=== PATIENT | female | born 1955 | race Caucasian/White ===

== ENCOUNTER 2022-03-13 17:54 | Outpatient (RCR) | payer MEDICARE, SELFPAY | END 2022-10-04 12:51 | disposition home or self-care (01) | LOC: MOW 17:54 | PROVIDERS: Visit Provider Family Medicine | DX: Z76.0 Encounter for issue of repeat prescription (principal) | CPT/HCPCS: S5170 ==

== ENCOUNTER 2022-05-04 15:54 | Outpatient (CLI) | payer MEDICARE, SELFPAY ==
[2022-05-04 16:26] LABS: Basophils Absolute Auto 0.01 K/uL (0.00-0.30); Basophils Percent Auto 0.2 % (0.0-3.0); Eosinophils Absolute Auto 0.01 K/uL (0.00-0.50); Eosinophils Percent Auto 0.2 % (0.0-7.0); Hemoglobin* 11.4 gm/dL (12.0-16.0); Immature Granulocytes Abs Auto 0.01 K/uL (0.00-0.30); Lymphocytes Absolute Auto 2.18 K/uL (0.90-2.90); Lymphocytes Percent Auto 33.1 % (20-44); Mean Corpuscular HGB Conc 34 gm/dL (32-36); Mean Corpuscular Hemoglobin 32 pg (26-34); Mean Corpuscular Volume 94 fL (80-100); Monocytes Percent Auto 7.9 % (0.0-11.0); Neutrophils Absolute Auto 3.86 K/uL (1.7-7.0); Neutrophils Percent Auto 58.4 % (42.0-72.0); Platelet Count* 236 K/uL (140-440); RDW Coefficient of Variation % 15.5 % (11.5-15.5); Red Blood Count 3.62 m/uL (4.00-5.20); White Blood Count* 6.59 K/uL (4.50-11.00)
[2022-05-04 16:28] LABS: Slide Review Reflex No
[2022-05-04 16:39] LABS: Albumin* 4.2 g/dL (3.3-5.0)
[2022-05-04 16:40] LABS: Chloride* 101 mmol/L (96-114); Potassium* 4.2 mmol/L (3.6-5.1); Sodium* 134 mmol/L (135-149)
[2022-05-04 16:42] LABS: Aspartate Amino Transferase* 39 U/L (12-35); Bilirubin Total* 0.2 mg/dL (0.1-1.5); Carbon Dioxide* 24 mmol/L (20-32); Creatinine* 0.7 mg/dL (0.5-1.5); Estimated Glomerular Filt Rate 95 ml/min; Total Protein* 7.8 g/dL (6.0-8.3)
[2022-05-04 16:43] LABS: Alanine Aminotransferase* 26 U/L (4-35); Alkaline Phosphatase* 104 U/L (40-150); Blood Urea Nitrogen* 32 mg/dL (7-30); Calcium* 8.4 mg/dL (8.4-10.6); Glucose* 123 mg/dL (60-115)
== END 2022-05-04 15:55 | disposition home or self-care (01) ==
PROVIDERS: PCP Nurse Practitioner; Visit Provider Nurse Practitioner
DX: C34.12 Malignant neoplasm of upper lobe, left bronchus or lung (principal); R11.0 Nausea; R19.7 Diarrhea, unspecified
CPT/HCPCS: 36415; 80053; 83735; 85025

== ENCOUNTER 2022-08-02 19:27 | Emergency (ER) | payer MEDICARE, SELFPAY ==
[2022-08-02 19:37] VITALS: BP 164/111; PULSE 96; RESP 18; TEMP 36.6; O2SAT 100; BMI 37.8
--- NOTE | 2022-08-02 20:15 | ED_ITS ---
HPI - SOB/Dyspnea General Chief Complaint: Shortness of Breath/Dyspnea Stated Complaint: Weakness Time Seen by Provider: 08/02/22 19:57 History of Present Illness HPI Narrative: This 66-year-old female comes in reporting shortness of breath. She arrives with no 100% oximetry and normal pulse and respiratory rates. She states that she is COPD and small cell lung cancer that is metastatic to several other places. She is currently being treated in the [facility] and finished radia tion and chemotherapy a couple weeks ago. She does not report any fevers. She states that she has an inhaler but reports that it has not helped much. Related Data Home Medications Medication Instructions Recorded Confirmed albuterol sulfate 90 mcg/actuation inhalation 08/02/22 aerosol inhaler alprazolam 1 mg tablet mg 08/02/22 alprazolam 2 mg tablet mg 08/02/22 atenolol 50 mg tablet mg 08/02/22 carvedilol 6.25 mg tablet mg 08/02/22 duloxetine 20 mg capsule,delayed mg PO 08/02/22 release eszopiclone 2 mg tablet mg 08/02/22 fluticasone fur. 200 mcg-umeclid inhalation 08/02/22 62.5 mcg-vilant 25 mcg inhalat.powder (Trelegy Ellipta) furosemide 20 mg tablet mg 08/02/22 lisinopril 5 mg tablet mg 08/02/22 olanzapine 2.5 mg tablet mg 08/02/22 ropinirole 2 mg tablet mg 08/02/22 Allergies Allergy/AdvReac Type Severity Reaction Status Date / Time No Known Drug Allergies Allergy Verified 08/02/22 19:44 Review of Systems Status of ROS: Reports: 10 or more systems reviewed and unremarkable except as noted in History and below Narrative: Constitutional: No fevers, no weight gain or loss. Eyes: No discharge. No vision changes. HENT: No congestion, no sore throat, no ear pain. Cardiovascular: No chest pain, no palpitations. Respiratory: Shortness of breath as described above. Gastrointestinal: No abdominal pain, no vomiting, no diarrhea. Genitourinary: No dysuria, no hematuria. Musculoskeletal: Normal range of motion. Skin: No rashes, no pruritis. Neurological: No dizziness, weakness, sensory change, speech change. Endo/Heme/Allergies: No bruising or bleeding. No polydipsia. Pysch: no suicidality, no anxiety, no insomnia. All other systems reviewed and are negative. PFSH [facility] Social History Smoking Status: Current every day smoker What tobacco products do you use: cigarettes Second hand tobacco smoke exposure: No How often do you have a drink containing alcohol: never AUDIT-C Alcohol total score: 0 Non-prescribed substance use: denies use service: No Exam Narrative: Exam Narrative: Constitutional: Well-developed, well-nourished, no acute distress. HEENT: Normocephalic, atraumatic. Neck: Normal range of motion. Nontender. Supple. Heart: Regular. No murmurs. Normal rate. Intact distal pulses. Lungs: Clear to auscultation. No chest discomfort. No wheezes, rhonchi, or rales. Abdomen: Normal bowel sounds. Nontender. No rebound tenderness. Genitalia: Deferred. Back: No midline tenderness. Normal range of motion. Extremities: Normal range of motion. No injury. No pedal edema. Skin: Intact. No rash. Warm. No erythema or pallor. Neurologic: No altered sensation. No weakness. Alert and oriented. Psychiatric: No suicidality. No anxiety or depression. No insomnia. Nursing notes and vitals signs are reviewed. Const: Vital Signs, click to edit/add: Vital Signs - 24 hr 08/02/22 19:37 08/02/22 20:35 Temperature 97.9 F Pulse Rate [Pulse Oximeter] 96 93 Respiratory Rate 18 20 Blood Pressure [Ri ght Upper Arm] 164/111 H 152/111 H Pulse Oximetry 100 97 Oxygen Delivery Me thod Nasal Cannula Room Air Course Vital Signs Vital signs: Initial Vital Signs Temperature 97.9 F 08/02/22 19:37 Temperature Source Temporal Artery Scan 08/02/22 19:37 Pulse Rate 96 08/02/22 19:37 Pulse Rhythm 08/02/22 19:37 Pulse Strength 0+ Absent 08/02/22 19:37 Respiratory Rate 18 08/02/22 19:37 Blood Pressure 164/111 H 08/02/22 19:37 Blood Pressure Mean 128 08/02/22 19:37 Blood Pressure Position Sitting 08/02/22 19:37 Pulse Oximetry 100 08/02/22 19:37 Oxygen Delivery Method 08/02/22 19:37 Vital Signs Temperature 97.9 F 08/02/22 19:37 Pulse Rate 96 08/02/22 19:37 Respiratory Rate 18 08/02/22 19:37 Blood Pressure 164/111 H 08/02/22 19:37 Pulse Oximetry 100 08/02/22 19:37 Oxygen Delivery Method 08/02/22 19:37 Temperature 97.9 F 08/02/22 19:37 Pulse Rate 93 08/02/22 20:35 Respiratory Rate 20 08/02/22 20:35 Blood Pressure 152/111 H 08/02/22 20:35 Pulse Oximetry 97 08/02/22 20:35 Oxygen Delivery Method 08/02/22 20:35 MDM - SOB/Dyspnea MDM Narrative Medical decision making narrative: This patient comes in reporting worsening shortness of breath over the past 5 days or so. I did discuss lab and imaging options with the patient who declined all these except for the nasal swab. She is showing normal vital signs and is not using accessory muscles for breathing. She did recently have chemotherapy and radiation treatments. The radiation may be causing some changes in her breathing. Her EKG shows a left bundle branch block. She is not reporting any chest pain. Her testing for COVID and RSV returned negative. Influenza a is positive. Her symptoms started 3 days ago she says so she did receive a prescription for Tamiflu. I did again ask her about checking further labs and imaging which she declined. She plans to follow-up with her primary physician and oncology team. Lab Data Labs: Lab Results 08/02/22 Range/Units 19:30 SARS-CoV-2 (PCR) Negative SARS-CoV-2 (Negative) Influenza Type A (PCR) POSITIVE PCR FLU A A (Negative) Influenza Type B (PCR) Negative PCR FLU B (Negative) RSV (PCR) Negative PCR RSV (Negative) ECG Data Attestation: I personally reviewed and interpreted this ECG as follows: Interpretation: Normal sinus rhythm. Rate is 95 beats per minute. There is a left bundle branch block. Discharge Plan Discharge Clinical Impression: Influenza A Patient Disposition: Home, Self-Care Condition: Stable Additional Instructions: Take medication as prescribed. Follow up with primary physician or return if worsening symptoms happen. Prescriptions: No Action carvedilol 6.25 mg tablet alprazolam 1 mg tablet Label Comments: TAKE 1 TABLET BY MOUTH THREE TIMES DAILY NEEDED olanzapine 2.5 mg tablet ropinirole 2 mg tablet Label Comments: TAKE 1 TABLET BY MOUTH EVERY NIGHT AT BEDTIME lisinopril 5 mg tablet furosemide 20 mg tablet alprazolam 2 mg tablet Label Comments: TAKE 1 TABLET BY MOUTH EVERY DAY AT BEDTIME NEEDED albuterol sulfate 90 mcg/actuation HFA aerosol inhaler INHALATION Label Comments: INHALE 2 PUFFS BY MOUTH EVERY 4 HOURS NEEDED FOR SHORTNESS OF BREATH atenolol 50 mg tablet Label Comments: TAKE 1 AND ONE-HALF TABLET BY MOUTH DAILY duloxetine 20 mg capsule,delayed release(DR/EC) PO Label Comments: TAKE 1 CAPSULE BY MOUTH EVERY DAY eszopiclone 2 mg tablet Label Comments: TAKE 1 TABLET BY MOUTH AT BEDTIME Trelegy Ellipta 200-62.5-25 mcg blister with device INHALATION Label Comments: INHALE 1 PUFF BY MOUTH EVERY DAY Follow Up/Referrals: Misty Hess APRN [Primary Care Provider] - Stand Alone Forms: [facility] Info Instructions
[2022-08-02 20:24] LABS: PCR FLU A POSITIVE PCR FLU A (Negative); PCR FLU B Negative PCR FLU B (Negative); PCR RSV Negative PCR RSV (Negative)
[2022-08-02 20:27] LABS: SARS PCR* Negative SARS-CoV-2 (Negative)
[2022-08-02 20:35] VITALS: BP 152/111; PULSE 93; RESP 20; O2SAT 97
[2022-08-02 21:33] VITALS: BP 114/75; PULSE 78; RESP 18
--- NOTE | 2022-08-03 16:31 | PC.SOCIAL ---
Phone call to pt's son, Inocente Kong, at [phone]. Discussed current concerns of pt. Inocente states that pt is unwilling to allow anyone to assist her. Inocente states that pt is currently in pain and he is trying to get her to go into the Emergency Department as we speak, but pt is yelling at him. Discussed potential resources for client. Inocente informs that client had home sales service professional care in place a few months back and pt would not allow workers into her home. public bath attendant care is currently not in place and Inocente does not feel like that is an option due to pt's non-compliance. Discussed hospice with pt's son. Pt's son is interested in obtaining a list for hospice care agencies in the area. This worker will email a list to [email or web address]. Informed Inocente that he can call hospice and request an informational meeting for pt and himself. Discussed if there were any upcoming appointments for Oncology and Inocente stated he is waiting for [facility] in [place] to call him back with appointment information. Informed Inocente that Oncology could also discuss options for services and discuss hospice. Inocente states that pt will not listen to him and may only listen to mobile paramedical examiner. Discussed if all of pt's needs were currently being met and Inocente stated they are but he is doing everything and it is overwhelming because pt does not want him to do things for her. Inocente states that pt wants to at home and doesn't want anyone assisting her with any of her care needs. Provided Inocente with the [employer] [facility] line phone number which is [phone]. Informed Inocente that they could assist with locating resources in the area that may be of assistance. Will follow up with an email of resources. Informed Inocente that he may reach out to the social work department with any further questions.
== END 2022-08-02 21:33 | disposition home or self-care (01) ==
PROVIDERS: Emergency Provider Emergency Medicine Emergency Medical Services; PCP Nurse Practitioner
DX: J10.1 Influenza due to other identified influenza virus with other respiratory manifestations (principal)
CPT/HCPCS: 87502; 87634; 87635; 93005; 99284; A0425; A0427

== ENCOUNTER 2022-08-13 17:37 | Emergency (ER) | payer MEDICARE, SELFPAY ==
[2022-08-13 19:06] VITALS: BP 132/84; PULSE 92; RESP 24; TEMP 36; O2SAT 93; BMI 35.4
[2022-08-13] MEDS: OLANZapine 5 MG TAB.RAPDIS PO (20:00)
--- NOTE | 2022-08-13 20:05 | ED.NURSE ---
Pt pacing in and hallway. Pt has impulsive and spontaneous loud verbal outbursts when pt needs to express a thought or question. Pt accepted oral med. Pt initially refused to allow lab draw, but pt verbally redirected by repairer typewriter and then pt allowed lab to draw blood. Pt very impatient and verbally loud while blood was drawn. Pt stating desire to leave. notified.
[2022-08-13 20:09] LABS: Basophils Absolute Auto 0.02 K/uL (0.00-0.30); Basophils Percent Auto 0.2 % (0.0-3.0); Eosinophils Percent Auto 1.2 % (0.0-7.0); Hematocrit 44.6 % (33.0-51.0); Hemoglobin* 14.5 gm/dL (12.0-16.0); Immature Granulocytes Abs Auto 0.01 K/uL (0.00-0.30); Immature Granulocytes Pct Auto 0.1 %; Lymphocytes Percent Auto 47.2 % (20-44); Mean Corpuscular HGB Conc 33 gm/dL (32-36); Mean Corpuscular Hemoglobin 30 pg (26-34); Mean Corpuscular Volume 92 fL (80-100); Neutrophils Absolute Auto 3.58 K/uL (1.7-7.0); Neutrophils Percent Auto 44.3 % (42.0-72.0); Platelet Count* 318 K/uL (140-440); RDW Coefficient of Variation % 12.5 % (11.5-15.5); Red Blood Count 4.83 m/uL (4.00-5.20); White Blood Count* 8.11 K/uL (4.50-11.00)
[2022-08-13 20:10] LABS: Slide Review Reflex No
--- NOTE | 2022-08-13 20:19 | ED.NURSE ---
Pt attempted to walk out of ED, yelling at security that she was leaving. Pt verbally directed by conventional underwriter and security to return to her room. Pt returned to room 7 voluntarily, continuing to yell about wanting to leave. MD aware, pt placed on 72-hour hold. Cork Wirer read Notice of Patient Rights to pt and provided pt with copy of Notice of Patient Rights. spoke with pt in RM 7 as well to attempt to deescalate pt.
[2022-08-13 20:28] LABS: Albumin* 4.8 g/dL (3.3-5.0); Chloride* 106 mmol/L (96-114); Sodium* 143 mmol/L (135-149)
[2022-08-13 20:29] LABS: Potassium* 3.9 mmol/L (3.6-5.1)
[2022-08-13 20:31] LABS: Alkaline Phosphatase* 95 U/L (40-150); Aspartate Amino Transferase* 27 U/L (12-35); Bilirubin Total* 0.5 mg/dL (0.1-1.5); Blood Urea Nitrogen* 26 mg/dL (7-30); Calcium* 9.9 mg/dL (8.4-10.6); Carbon Dioxide* 29 mmol/L (20-32); Creatinine* 0.7 mg/dL (0.5-1.5); Est. Creatinine Clearance* 45.16; Estimated Glomerular Filt Rate 95 ml/min; Glucose* 115 mg/dL (60-115); Total Protein* 8.9 g/dL (6.0-8.3)
[2022-08-13 20:32] LABS: Acetaminophen* < 10.0 ug/mL (10.0-30.0); Alanine Aminotransferase* 25 U/L (4-35); Ethanol* < 0.01 % (0.01-0.03); Salicylate* < 1.0 mg/dL (1.0-10)
--- NOTE | 2022-08-13 20:38 | ED.AMS ---
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 Cocaine Screen (Negative) U Marijuana (THC) Screen (Negative) Ur Drug Screen Comment Ethyl Alcohol (0.01-0.03) % SARS-CoV-2 (PCR) Negative SARS-CoV-2 (Negative) <Jaki Sandy MD - Last Filed: 08/14/22 23:21> Lab Results 08/13/22 08/13/22 08/13/22 Range/Units 19:55 20:03 20:03 WBC 8.11 (4.50-11.00) K/uL RBC 4.83 (4.00-5.20) m/uL Hgb 14.5 (12.0-16.0) gm/dL Hct 44.6 (33.0-51.0) % MCV 92 (80-100) fL MCH 30 (26-34) pg MCHC 33 (32-36) gm/dL RDW Coeff of Michelle 12.5 (11.5-15.5) % Plt Count 318 (140-440) K/uL Neut % (Auto) 44.3 (42.0-72.0) % Lymph % (Auto) 47.2 H (20-44) % Rogers % (Auto) 7.0 (0.0-11.0) % Eos % (Auto) 1.2 (0.0-7.0) % Baso % (Auto) 0.2 (0.0-3.0) % Neut # (Auto) 3.58 (1.7-7.0) K/uL Lymph # (Auto) 3.80 H (0.90-2.90) K/uL Rogers # (Auto) 0.60 (0.00-0.90) K/UL Eos # (Auto) 0.10 (0.00-0.50) K/uL Baso # (Auto) 0.02 (0.00-0.30) K/uL Abs Immat Gran (auto) 0.01 (0.00-0.30) K/uL Imm/Tot Granulo (auto) 0.1 % Sodium 143 (135-149) mmol/L Potassium 3.9 (3.6-5.1) mmol/L Chloride 106 (96-114) mmol/L Carbon Dioxide 29 (20-32) mmol/L BUN 26 (7-30) mg/dL Creatinine 0.7 (0.5-1.5) mg/dL Estimated Creat Clear 45.16 Estimated GFR 95 ml/min Glucose 115 (60-115) mg/dL Calcium 9.9 (8.4-10.6) mg/dL Total Bilirubin 0.5 (0.1-1.5) mg/dL AST 27 (12-35) U/L ALT 25 (4-35) U/L Alkaline Phosphatase 95 (40-150) U/L Total Protein 8.9 H (6.0-8.3) g/dL Albumin 4.8 (3.3-5.0) g/dL Salicylates < 1.0 L (1.0-10) mg/dL Urine Opiates Screen Negative (Negative) Ur Oxycodone Screen Negative (Negative) Urine Methadone Screen Negative (Negative) Ur Propoxyphene Screen Negative (Negative) Acetaminophen < 10.0 L (10.0-30.0) ug/mL Ur Barbiturates Screen Negative (Negative) U Tricyclic Antidepress Negative (Negative) Ur Phencyclidine Scrn Negative (Negative) Ur Amphetamines Screen POSITIVE A* (Negative) U Methamphetamines Scrn POSITIVE A* (Negative) U Benzodiazepines Scrn POSITIVE A* (Negative) Urine Cocaine Screen Negative (Negative) U Marijuana (THC) Screen Negative (Negative) Ur Drug Screen Comment See Note Ethyl Alcohol < 0.01 L (0.01-0.03) % SARS-CoV-2 (PCR) (Negative) 08/13/22 Range/Units 21:10 WBC (4.50-11.00) K/uL RBC (4.00-5.20) m/uL Hgb (12.0-16.0) gm/dL Hct (33.0-51.0) % MCV (80-100) fL MCH (26-34) pg MCHC (32-36) gm/dL RDW Coeff of Michelle (11.5-15.5) % Plt Count (140-440) K/uL Neut % (Auto) (42.0-72.0) % Lymph % (Auto) (20-44) % Rogers % (Auto) (0.0-11.0) % Eos % (Auto) (0.0-7.0) % Baso % (Auto) (0.0-3.0) % Neut # (Auto) (1.7-7.0) K/uL Lymph # (Auto) (0.90-2.90) K/uL Rogers # (Auto) (0.00-0.90) K/UL Eos # (Auto) (0.00-0.50) K/uL Baso # (Auto) (0.00-0.30) K/uL Abs Immat Gran (auto) (0.00-0.30) K/uL Imm/Tot Granulo (auto) % Sodium (135-149) mmol/L Potassium (3.6-5.1) mmol/L Chloride (96-114) mmol/L Carbon Dioxide (20-32) mmol/L BUN (7-30) mg/dL Creatinine (0.5-1.5) mg/dL Estimated Creat Clear Estimated GFR ml/min Glucose (60-115) mg/dL Calcium (8.4-10.6) mg/dL Total Bilirubin (0.1-1.5) mg/dL AST (12-35) U/L ALT (4-35) U/L Alkaline Phosphatase (40-150) U/L Total Protein (6.0-8.3) g/dL Albumin (3.3-5.0) g/dL Salicylates (1.0-10) mg/dL Urine Opiates Screen (Negative) Ur Oxycodone Screen (Negative) Urine Methadone Screen (Negative) Ur Propoxyphene Screen (Negative) Acetaminophen (10.0-30.0) ug/mL Ur Barbiturates Screen (Negative) U Tricyclic Antidepress (Negative) Ur Phencyclidine Scrn (Negative) Ur Amphetamines Screen (Negative) U Methamphetamines Scrn (Negative) U Benzodiazepines Scrn (Negative) Urine Cocaine Screen (Negative) U Marijuana (THC) Screen (Negative) Ur Drug Screen Comment Ethyl Alcohol (0.01-0.03) % SARS-CoV-2 (PCR) Negative SARS-CoV-2 (Negative) <Facundo Trotter MD - Last Filed: 08/15/22 09:50> Discharge Plan Discharge Clinical Impression: Acute alteration in mental status, Illicit drug use <Barry Benitez MD - Last Filed: 08/13/22 22:16> Patient Disposition: Home w/ Parent or Adult <Barry Benitez MD - Last Filed: 08/13/22 22:16> Condition: Improved <Barry Benitez MD - Last Filed: 08/13/22 22:16> Instructions: Altered Mental Status (ED) <Barry Benitez MD - Last Filed: 08/13/22 22:16> Additional Instructions: Rest, light activity, update primary care within the next 12to48 p.m., consult with hospice as per social Service. Return to ED as needed <Barry Benitez MD - Last Filed: 08/13/22 22:16> Activity Level: Light activity <Barry Benitez MD - Last Filed: 08/13/22 22:16> Light activity <Vinnie Abdalla MD - Last Filed: 08/17/22 11:47> Light activity <Jaki Sandy MD - Last Filed: 08/14/22 23:21> Light activity <Facundo Trotter MD - Last Filed: 08/15/22 09:50> Discharge Diet: Regular <Brary Benitez MD - Last Filed: 08/13/22 22:16> Regular <Vinnie Abdalla MD - Last Filed: 08/17/22 11:47> Regular <Jaki Sandy MD - Last Filed: 08/14/22 23:21> Regular <Facundo Trotter MD - Last Filed: 08/15/22 09:50> Prescriptions: No Action alprazolam 1 mg tablet 1 mg PO DAILY PRN Label Comments: TAKE 1 TABLET BY MOUTH THREE TIMES DAILY NEEDED olanzapine 2.5 mg tablet 2.5 mg PO DAILY PRN ropinirole 2 mg tablet 2 mg PO HS Label Comments: TAKE 1 TABLET BY MOUTH EVERY NIGHT AT BEDTIME furosemide 20 mg tablet 20 mg PO DAILY alprazolam 2 mg tablet Label Comments: TAKE 1 TABLET BY MOUTH EVERY DAY AT BEDTIME NEEDED albuterol sulfate 90 mcg/actuation HFA aerosol inhaler 2 inh INHALATION Q4H PRN Label Comments: INHALE 2 PUFFS BY MOUTH EVERY 4 HOURS NEEDED FOR SHORTNESS OF BREATH atenolol 50 mg tablet 75 mg PO Q24H Label Comments: TAKE 1 AND ONE-HALF TABLET BY MOUTH DAILY <Barry Benitez MD - Last Filed: 08/13/22 22:16> Follow Up/Referrals: Misty Hess APRN [Primary Care Provider] - <Barry Benitez MD - Last Filed: 08/13/22 22:16> Stand Alone Forms: MyHealth Info Instructions <Barry Benitez MD - Last Filed: 08/13/22 22:16>
[2022-08-13 20:41] LABS: Barbiturate Screen Urine Negative (Negative); Cannabinoid Screen Urine Negative (Negative); Cocaine Screen Urine Negative (Negative); Methadone Screen Urine Negative (Negative); Opiate Screen Urine Negative (Negative); Oxycodone Screen Urine Negative (Negative); Phencyclidine Screen Urine Negative (Negative); Tricyclic Antidepressant Urine Negative (Negative)
[2022-08-13 20:42] LABS: Amphetamine Screen Urine POSITIVE (Negative); Benzodiazepines Screen Urine POSITIVE (Negative); Methamphetamines Screen Urine POSITIVE (Negative)
--- NOTE | 2022-08-13 20:44 | ED.NURSE ---
Pt continuing to yell and swear at security and demanding that she be allowed to leave. MD ordered additional IM meds to be given. Pt moved to RM 1 (a safe room). Pt voluntarily walked to RM 1 but needed frequent verbal directions to keep her walking the appropriate direction. Once in RM 1, underwriter mortgage loan informed pt of the IM meds the MD had ordered for the pt. Meds and purpose for giving meds to pt explained. Windshield Wiper Repairer explained that meds were being given to keep pt and staff safe. Pt refused to voluntarily accept meds. Windshield Wiper Repairer explained alternative would be that staff would have to hold pt to administer IM shots, explained several times to pt that we would prefer not to hold pt to give IM meds. Pt continuing to refuse to accept meds voluntarily. Multiple staff from ER, EMS, and Security entered room to assist in holding pt while IM meds given by CARISA Giraldo. Pt verbally refusing meds and yelling at staff, but did not physically resist staff holds as meds were given. Staff holds on pt released as soon as IM meds were given. Windshield Wiper Repairer stated we would give pt some time to cool off in the room alone. Pt yelling at underwriter mortgage loan to leave the room door open. Windshield Wiper Repairer explained that because pt was yelling and disruptive, door would be closed. Pt then yelling at underwriter mortgage loan to shut lights off. Windshield Wiper Repairer turned lights off at pt request. notified of event.
[2022-08-13] MEDS: HALOPERIDOL 5 MG/ML INJ IM (20:45)
[2022-08-13] MEDS: diphenhydrAMINE 50 MG/ML inj IM (20:45)
[2022-08-13] MEDS: LORazepam 2 MG/ML inj IM (20:45)
--- NOTE | 2022-08-13 20:58 | ED.NURSE ---
Pt still yelling at senior underwriter when senior underwriter entered the room, but pt allowed vitals to be taken. VSS. Continuous pulse ox applied.
[2022-08-13 21:00] VITALS: BP 125/65; PULSE 75; O2SAT 95
--- NOTE | 2022-08-13 21:14 | ED.NURSE ---
Pt requesting food, pt provided with turkey sandwich, crackers, and jello.
[2022-08-13 22:04] LABS: SARS PCR* Negative SARS-CoV-2 (Negative)
--- NOTE | 2022-08-13 22:05 | ED.NURSE ---
Pt appears calmer, has not been yelling and has been able to appropriately make her needs known to staff. Pt is still very restless, climbing in and out of the bed periodically.
--- NOTE | 2022-08-14 00:15 | ED.NURSE ---
Pt continues to be restless, in and out of bed, at the door frequently to talk to security or nursing staff. Pt remains calm and verbally redirectable at this time.
[2022-08-14] MEDS: NICOTINE 14 mg PATCH 1 PATCH TRANSDERMA (00:52)
[2022-08-14] MEDS: LORazepam 1 MG TABLET 2 MG PO (01:06)
--- NOTE | 2022-08-14 04:18 | ED.NURSE ---
patient up to bathroom, sba. Pt up frequently asking what time it is, pt requested food and drink, both provided.
--- NOTE | 2022-08-14 07:06 | ED.NURSE ---
patient frequently up from bed to doorway asking what time it is, reoriented and pt states okay and goes back to laying in bed. pt easily redirectable and cooperative.
[2022-08-14] MEDS: OLANZapine 5 MG TAB.RAPDIS 2.5 MG PO (07:50)
[2022-08-14] MEDS: atenoloL 50 MG TABLET 75 MG PO (07:50)
[2022-08-14 08:00] VITALS: BP 133/85; PULSE 63; RESP 20; TEMP 36.5; O2SAT 95
--- NOTE | 2022-08-14 08:56 | CRLHL7_ITS ---
For Patients: As a result of the Century Cures Act, medical imaging exams and procedure reports are released immediately into your electronic medical record. You may view this report before your referring provider. If you have questions, please contact your health care provider. INDICATION: AMS. History of known brain metastases. TECHNIQUE: Head CT without contrast. COMPARISON: Patient has an outside MRI which is not available for comparison but per discussion with the ER physician patient has history of known brain metastases. FINDINGS: Nonspecific periventricular subcortical white matter lucencies which likely relate to chronic microvascular ischemia. However, there are multifocal bilateral foramina subcortical periventricular hypodensities. Additionally within the right frontal region near the watts-white junction there is a small cortical hypodensity measuring 3 mm (axial image 33) similar punctate hyperdensities seen within the left frontal region is ago junction (axial image 32). Ventricles normal size and configuration. No midline shift. Basilar cisterns are patent. The visualized paranasal sinuses and mastoid air cells demonstrate no acute or significant findings. The visualized orbits are grossly unremarkable. No skull fractures. IMPRESSION: Multiple bilateral subcortical and periventricular white matter hypodensities some of which are near the watts-white junction which likely represent patient`s known brain metastases. Additionally, there are at least 2 small bifrontal cortical/subcortical hyperdensities. These later findings are suspicious for hemorrhagic metastases. Prior imaging is not available for direct comparison. Findings discussed with Dr. Abdalla at 3:15 p.m. 08/14/2022. Please note that all CT scans at this facility use dose modulation, iterative reconstruction, and/or weight-based dosing when appropriate to reduce radiation dose to as low as reasonably achievable. Dictated by Jl Rice MD @ 08/14/2022 3:17:48 PM (Electronically Signed)
--- NOTE | 2022-08-14 09:38 | ED.NURSE ---
assisted to bathroom. was able to urinate. back to bed and wanted to sleep. was unable to engage in dec assessment as she wanted to sleep.
--- NOTE | 2022-08-14 11:05 | ED.NURSE ---
has been unable to lie still in ct. had wanted to be seen and evaluated. dr castro was informed.
[2022-08-14] MEDS: OLANZapine 5 MG TAB.RAPDIS PO (11:38)
--- NOTE | 2022-08-14 12:10 | ED.NURSE ---
is sitting on the edge of the bed. is eating lunch.
[2022-08-14 12:15] VITALS: BP 112/60; PULSE 61; RESP 20; TEMP 36.2; O2SAT 97
--- NOTE | 2022-08-14 17:36 | ED.NURSE ---
has had dec assessment. was asking for a cigarette. does have a nicotine patch that was placed early this am.
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
--- NOTE | 2022-08-14 18:33 | ED.NURSE ---
does have good appetite. dr swift in room speaking to brandon. brandon does want t go home. is in nightie yet and does not want me to make up her bed.
--- NOTE | 2022-08-14 18:47 | PC.SOCIAL ---
Social work: Called [facility] 24/7 crisis line at [phone] and shared that this patient is in the ED and has an open Vulnerable Adult Case and requested Darya Moreno [facility] Vulnerable Adult worker call this web content & social media manager. Received call from Elena Morneo who states she has reached son who does not live with pt but spends as much time with her as possible and provides care for her in her apartment. Per Elena, son states he can be with her 24/7 on two weeks when he is laid off from his seasonal work. But is unable to provide 24/7 care until then. Informed Elena that hospital staff has tried to reach son but he has not returned calls. Darya states she will reach out to son and have him call the Emergency Department. Darya Moreno was not aware pt had tested positive for substance when she arrived at the Emergency Room. Darya states she will contact MD directly in the ED to answer her questions about Vulnerable Adult concerns and involvement.
--- NOTE | 2022-08-15 04:29 | ED.NURSE ---
patient brought to med surg to shower and clean up, pt states she feels better, new linens on bed, pt resting in bed after.
[2022-08-15 04:30] VITALS: BP 122/71; PULSE 66; RESP 16; O2SAT 97
[2022-08-15] MEDS: NICOTINE 14 mg PATCH 1 PATCH TRANSDERMA (08:58)
[2022-08-15 09:10] VITALS: BP 113/74; PULSE 77; RESP 18; TEMP 36.7; O2SAT 92
--- NOTE | 2022-08-15 09:11 | ED.NURSE ---
was assisted up to bathroom. needed to steady self on the wall. does explain that her son is working, and hard to get a hold of. had slept well. asking for breakfast.
--- NOTE | 2022-08-15 10:08 | PC.SOCIAL ---
Discharge planning: [facility] who was [facility] pt was still at the hospital and had expected her to be discharged home last night. Darya states she spoke with MD at the hospital last nigth regarding this pt. Darya states pt has a structural engineering project manager richie Gilman [facility], , who would like to talk with hospital social economist. Called Kalina and left message requesting call back. Called son, Rik, who states he lives with pt but works outside the home so is not providing 24/7 care. Deven plans to talk with his brother to see if family can increase supervision of pt at home. Son was interested in memory care placement for pt but would prefer to take her home as this is her preference. Met with pt who is refusing placement and states she is safe to go home. Pt states her son provides all the assistance needed and she is not interested in moving to a facility that would provide more care. Pt is open to social economist making a referral to the Senior Linkage Line who will contact her after discharge to evaluate her for eligibility for additional services at home. Questioned pt regarding the positive tox screen for Meth and other substances. Pt denies recent drug use but then stated she has relapsed and used while ago.. Pt would not elaborate on her drug use. Pt gave permission for social economist to share results of her tox screen and discharge plan with her son, Deven. Pt states her son will be her ride home at discharge. Called son and informed him of pt's refusal for placement and plan to discharge her home. Informed son of tox screen results. Son was surprised stating he thought pt's substance use had been taken care of years ago. Son is aware and agrees with referral to the Senior Linkage Line for services. Son states he will arrange for someone to pick pt up for transport home by 11:00am this morning. Called Elena Moreno and left message with information on discharge plan.
--- NOTE | 2022-08-15 10:32 | ED.NURSE ---
family member was here and left to go to a bathroom. Up to the bathroom via ambulatory and eaten some of the breakfast provided. Asked patient to get dressed and family member will be back to tow picker around 1130.
--- NOTE | 2022-08-15 12:00 | ED.NURSE ---
Unidentified female individual had come to orange picker the patient earlier today at approx 1020. At that time, this individual stated that she was concerned the pt would be unsupervised at home. The individual then stated she would come back at 1130 to pick the pt up. Care team was already aware that the pt would be unsupervised at home, and I clarified this again with the RN and MD as well. At approx 1200, the female individual that had come earlier called the ER and spoke with report writer. Caller was very upset, speaking loudly and swearing at report writer about how we should not be releasing the pt to go home, stating the pt needs further care, etc. Caller then hung up on report writer. Orbitread Operator updated social work, primary RN, and MD about the situation.
--- NOTE | 2022-08-15 12:10 | ED.NURSE ---
was needing help with eating. used spoon with wrapper on it yet. was unable to get dressed by herself. huong cruz rn spoke to her ride on the phone, she will not be picking her up. valeri chaidez WAS INFORMED.
--- NOTE | 2022-08-15 12:48 | PC.SOCIAL ---
Discharge planning: Received call from RN that the ride son had arranged is refusing to picker operator pt. Met with pt who is waiting for ride home. Pt states she does not have her apartment keys with her but there is an manufacturing finance manager in site who can let her in when she arrives at the building. Pt confirmed she can get into the building without a hunt and then will contact manufacturing finance manager who is on site to let her in to her apartment. Called pt's son, Deven, and shared with him that the jeep driver he had arranged to pick pt up from the hospital is refusing to come pick her up. Son was surprised by this information and called a family member in [place] and arranged for them to pick pt up and bring her home. Son is aware pt does not have her keys and confirmed there is an on-site manufacturing finance manager who can assist her in getting into her apartment if needed. RN aware of this transportation plan.
--- NOTE | 2022-08-23 09:30 | PC.SOCIAL ---
Received a phone call from [facility] medicare insurance specialist, Sandra Avila. Sandra would like the following individuals to be contacted if pt enters [facility]. 1. Sandra Avila at [phone] 2. Kalina Melvin at [phone]
== END 2022-08-15 13:10 | disposition home or self-care (01) ==
PROVIDERS: Emergency Provider Internal Medicine; PCP Nurse Practitioner
DX: R41.82 Altered mental status, unspecified (principal); F19.10 Other psychoactive substance abuse, uncomplicated
CPT/HCPCS: 36415; 70450; 80053; 80143; 80179; 80306; 82077; 85025; 87635; 94761; 96372; 99285; 99291; A0998; A9270; J1200; J1630; J2060; S4990

== ENCOUNTER 2022-08-23 10:25 | Emergency (ER) | payer MEDICARE, SELFPAY ==
[2022-08-23 10:35] VITALS: BP 116/68; PULSE 83; RESP 14; TEMP 37.2; O2SAT 97; BMI 34.3
--- NOTE | 2022-08-23 11:06 | ED_ITS ---
HPI - Altered Mental Status General Chief Complaint: Altered Mental Status Stated Complaint: disoriented Time Seen by Provider: 08/23/22 10:49 History of Present Illness HPI narrative: This 66-year-old female comes in with her caser shoe parts. She lives alone at home and there is concerned that things are not going well for her at home. She does have history of lung cancer with metastatic disease to the brain. The patient herself does not have any complaints. She is not very well kept. She herself states that things are going well at home. She has a son who is somewhat involved with her care but essentially she is at home with some services coming into her home. She was seen about [address] had [address] scan and labs done. 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 She does not report using methamphetamines currently. She knows her name but does not know the date and is aware that she is in [place] but is not aware of what building this is. She arrives with normal vital signs. Her digital marketer is requesting a social service consult to arrange for a long-term care facility placement. Related Data Home Medications Medication Instructions Recorded Confirmed albuterol sulfate 90 mcg/actuation 2 inh inhalation Q4H PRN 08/02/22 08/13/22 aerosol inhaler alprazolam 1 mg tablet 1 mg PO DAILY PRN 08/02/22 08/13/22 alprazolam 2 mg tablet mg 08/02/22 atenolol 50 mg tablet 75 mg PO Q24H 08/02/22 08/13/22 furosemide 20 mg tablet 20 mg PO DAILY 08/02/22 08/13/22 olanzapine 2.5 mg tablet 2.5 mg PO DAILY PRN 08/02/22 08/13/22 ropinirole 2 mg tablet 2 mg PO HS 08/02/22 08/13/22 Allergies Allergy/AdvReac Type Severity Reaction Status Date / Time No Known Drug Allergies Allergy Verified 08/13/22 19:19 Review of Systems Status of ROS: Reports: 10 or more systems reviewed and unremarkable except as noted in History and below Narrative: Constitutional: No fevers, no weight gain or loss. Eyes: No discharge. No vision changes. HENT: No congestion, no sore throat, no ear pain. Cardiovascular: No chest pain, no palpitations. Respiratory: No shortness of breath, no wheezes, no cough. Gastrointestinal: No abdominal pain, no vomiting, no diarrhea. Genitourinary: No dysuria, no hematuria. Musculoskeletal: Normal range of motion. Skin: No rashes, no pruritis. Neurological: No dizziness, weakness, sensory change, speech change. Endo/Heme/Allergies: No bruising or bleeding. No polydipsia. Pysch: no suicidality, no anxiety, no insomnia. All other systems reviewed and are negative. [facility] Medical History (Updated 08/23/22 @ 12:33 by Dre Mayo MD) Anxiety Bipolar disorder Breast cancer Social History Smoking Status: Current every day smoker What tobacco products do you use: cigarettes Second hand tobacco smoke exposure: No How often do you have a drink containing alcohol: never AUDIT-C Alcohol total score: 0 Non-prescribed substance use: amphetamines/methamphetamines and sedatives /tranquilizers service: No Exam Narrative: Exam Narrative: Constitutional: Well-developed, well-nourished, no acute distress. HEENT: Normocephalic, atraumatic. Neck: Normal range of motion. Nontender. Supple. Heart: Regular. No murmurs. Normal rate. Intact distal pulses. Lungs: Clear to auscultation. No chest discomfort. No wheezes, rhonchi, or rales. Abdomen: Normal bowel sounds. Nontender. No rebound tenderness. Genitalia: Deferred. Back: No midline tenderness. Normal range of motion. Extremities: Normal range of motion. No injury. Skin: Intact. No rash. Warm. No erythema or pallor. Neurologic: No altered sensation. No weakness. Alert and oriented. Psychiatric: No suicidality. No anxiety or depression. No insomnia. She is not completely oriented to place or time. Nursing notes and vitals signs are reviewed. Const: Vital Signs, click to edit/add: Vital Signs - 24 hr 08/23/22 10:35 Temperature 98.9 F Pulse Rate [Pulse Oximeter] 83 Respiratory Rate 14 Blood Pressure [Ri ght Upper Arm] 116/68 Pulse Oximetry 97 Oxygen Delivery Me thod Room Air Course Vital Signs Vital signs: Initial Vital Signs Temperature 98.9 F 08/23/22 10:35 Temperature Source Temporal Artery Scan 08/23/22 10:35 Pulse Rate 83 08/23/22 10:35 Pulse Rhythm 08/23/22 10:35 Respiratory Rate 14 08/23/22 10:35 Blood Pressure 116/68 08/23/22 10:35 Blood Pressure Mean 84 08/23/22 10:35 Blood Pressure Position Sitting 08/23/22 10:35 Pulse Oximetry 97 08/23/22 10:35 Oxygen Delivery Method 08/23/22 10:35 Vital Signs Temperature 98.9 F 08/23/22 10:35 Pulse Rate 83 08/23/22 10:35 Respiratory Rate 14 08/23/22 10:35 Blood Pressure 116/68 08/23/22 10:35 Pulse Oximetry 97 08/23/22 10:35 Oxygen Delivery Method 08/23/22 10:35 Temperature 98.9 F 08/23/22 10:35 Pulse Rate 83 08/23/22 10:35 Respiratory Rate 14 08/23/22 10:35 Blood Pressure 116/68 08/23/22 10:35 Pulse Oximetry 97 08/23/22 10:35 Oxygen Delivery Method 08/23/22 10:35 MDM - Altered Mental Status MDM Narrative Medical decision making narrative: This patient comes in with her digital marketer who has filed some kind of process or in Persian to her safety at home. The caser shoe parts feels that things are not safe at home and that she needs placement in long-term care facility. The patient herself as no complaints and states that she does not want to go in such a place. There is no ruling in place for power regulatory attorney or medical decision- making that would over rule this patient's personal choice. She is of sound mind currently. She does have history of using methamphetamines and has been in here with methamphetamine induced psychosis. That is not the case today. A social service consult was ordered and the results of the consult was that this patient is okay to return home and the process can unfold for placement at some time in the future if warranted. Discharge Plan Discharge Clinical Impression: Lung cancer Patient Disposition: Home w/ Parent or Adult Condition: Unchanged Additional Instructions: Continue current plans. Return if worsening symptoms happen. Follow up with MD otherwise as needed. Prescriptions: No Action alprazolam 1 mg tablet 1 mg PO DAILY PRN Label Comments: TAKE 1 TABLET BY MOUTH THREE TIMES DAILY NEEDED olanzapine 2.5 mg tablet 2.5 mg PO DAILY PRN ropinirole 2 mg tablet 2 mg PO HS Label Comments: TAKE 1 TABLET BY MOUTH EVERY NIGHT AT BEDTIME furosemide 20 mg tablet 20 mg PO DAILY alprazolam 2 mg tablet Label Comments: TAKE 1 TABLET BY MOUTH EVERY DAY AT BEDTIME NEEDED albuterol sulfate 90 mcg/actuation HFA aerosol inhaler 2 inh INHALATION Q4H PRN Label Comments: INHALE 2 PUFFS BY MOUTH EVERY 4 HOURS NEEDED FOR SHORTNESS OF BREATH atenolol 50 mg tablet 75 mg PO Q24H Label Comments: TAKE 1 AND ONE-HALF TABLET BY MOUTH DAILY Follow Up/Referrals: Misty Hess, LUIS MIGUEL [Referring] - Stand Alone Forms: [facility] Info Instructions
--- NOTE | 2022-08-23 11:21 | ED.NURSE ---
concession worker called for consult.
--- NOTE | 2022-08-23 12:19 | ED.NURSE ---
Meal tray ordered.
[2022-08-23 12:59] VITALS: BP 116/68; PULSE 83; RESP 14; TEMP 37.2
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
== END 2022-08-23 13:00 | disposition home or self-care (01) ==
PROVIDERS: Emergency Provider Emergency Medicine Emergency Medical Services
DX: C34.90 Malignant neoplasm of unspecified part of unspecified bronchus or lung (principal)
CPT/HCPCS: 80306; 99283; 99284

== ENCOUNTER 2022-08-24 15:22 | Inpatient (IN) | payer MEDICARE, SELFPAY ==
[2022-08-24 15:24] VITALS: BP 141/78; PULSE 74; O2SAT 94
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
[2022-08-24] MEDS: OLANZapine 5 MG TAB.RAPDIS 10 MG PO ×2 (17:26→20:11)
--- NOTE | 2022-08-24 17:26 | ED.NURSE ---
Pt becoming agitated, stating she wants to leave the hospital. Slate Worker reminded pt that she was agreeable to admission a short time ago. Pt disagreeable to this now. Pt also stating she wants to go outside to smoke. notified. PO Zyprexa ordered and given, pt cooperative with taking PO meds.
--- NOTE | 2022-08-24 17:31 | ED.NURSE ---
Pt again stating she is disagreeable to admission. Admission to medical unit explained again to pt. Pt stating she refuses admission to the hospital. Pharmacy Clinical Specialist informed pt she was on a 72-hour hold signed by the MD. Notice of pt rights read to patient. Pt interrupted feature writer during this reading, screaming Fuck! very loudly, then telling feature writer to Shut up!. Copy of Notice of Patient Rights provided to pt.
[2022-08-24 17:40] LABS: SARS PCR* Negative SARS-CoV-2 (Negative)
[2022-08-24 18:05] VITALS: BP 140/88; PULSE 79; RESP 23; TEMP 36.8; O2SAT 96; BMI 32.0
[2022-08-24 18:06] VITALS: O2SAT 96
--- NOTE | 2022-08-24 18:45 | PC.NURSE ---
End of Shift: Patient arrived to the floor by wheelchair at about 1755. Patient is pleasant and cooperative. Patient is only oriented to self and has difficult finding words and pronouncing words. Patient vitally stable, lungs clear, BS WNL, NO IV. Patient was washed up by aid and changed out of dirty clothes during admission. Patient is stable on feet. Patient laying in bed comfortably. Patient reports using toilet when needing to urinate or have BM, but patient has not used toilet since arriving to med/surg.
[2022-08-24 19:07] VITALS: BP 131/75; PULSE 71; RESP 18; TEMP 36.8; O2SAT 99
[2022-08-24 19:17] LABS: Basophils Absolute Auto 0.02 K/uL (0.00-0.30); Basophils Percent Auto 0.3 % (0.0-3.0); Eosinophils Absolute Auto 0.08 K/uL (0.00-0.50); Eosinophils Percent Auto 1.2 % (0.0-7.0); Hemoglobin* 13.4 gm/dL (12.0-16.0); Lymphocytes Percent Auto 48.6 % (20-44); Mean Corpuscular HGB Conc 33 gm/dL (32-36); Mean Corpuscular Hemoglobin 30 pg (26-34); Mean Corpuscular Volume 92 fL (80-100); Monocytes Percent Auto 8.1 % (0.0-11.0); Neutrophils Percent Auto 41.8 % (42.0-72.0); Platelet Count* 200 K/uL (140-440); RDW Coefficient of Variation % 12.9 % (11.5-15.5); Red Blood Count 4.44 m/uL (4.00-5.20); White Blood Count* 6.63 K/uL (4.50-11.00)
[2022-08-24 19:18] LABS: Slide Review Reflex No
[2022-08-24 19:30] LABS: Albumin* 4.5 g/dL (3.3-5.0); Chloride* 108 mmol/L (96-114); Sodium* 145 mmol/L (135-149)
[2022-08-24 19:31] LABS: Potassium* 3.9 mmol/L (3.6-5.1)
[2022-08-24 19:33] LABS: Alanine Aminotransferase* 19 U/L (4-35); Alkaline Phosphatase* 69 U/L (40-150); Aspartate Amino Transferase* 21 U/L (12-35); Bilirubin Total* 0.5 mg/dL (0.1-1.5); Blood Urea Nitrogen* 30 mg/dL (7-30); Carbon Dioxide* 32 mmol/L (20-32); Creatinine* 0.6 mg/dL (0.5-1.5); Est. Creatinine Clearance* 47.14; Estimated Glomerular Filt Rate 98 ml/min; Glucose* 103 mg/dL (60-115); Total Protein* 7.6 g/dL (6.0-8.3)
[2022-08-24 19:34] LABS: Calcium* 9.5 mg/dL (8.4-10.6)
[2022-08-24 19:51] LABS: Amphetamine Screen Urine Negative (Negative); Barbiturate Screen Urine Negative (Negative); Benzodiazepines Screen Urine Negative (Negative); Cannabinoid Screen Urine Negative (Negative); Cocaine Screen Urine Negative (Negative); Methadone Screen Urine Negative (Negative); Opiate Screen Urine Negative (Negative); Oxycodone Screen Urine Negative (Negative); Phencyclidine Screen Urine Negative (Negative); Tricyclic Antidepressant Urine Negative (Negative)
[2022-08-24] MEDS: NICOTINE 7 MG PATCH 1 PATCH TRANSDERMA (20:12)
[2022-08-24 20:19] LABS: Appearance Urine Clear (Clear); Bilirubin Urine 1+ (Negative); Blood Urine Negative (Negative); Color Urine Yellow (Yellow); Glucose Urine Negative (Negative); Ketones Urine Trace (Negative); Leukocyte Esterase Urine 1+ (Negative); Nitrite Urine Negative (Negative); Protein Urine 1+ (Negative); Specific Gravity Urine >= 1.030 (1.000-1.030); pH Urine 5.5 (5.0-8.5)
[2022-08-24 20:29] LABS: Bacteria Urine Moderate; Squamous Epithelial Cell Urine Moderate (None-Few); WBC Urine 25-50 (0-5)
[2022-08-24 20:37] LABS: Methamphetamines Screen Urine POSITIVE (Negative)
[2022-08-24] MEDS: MELATONIN 3 MG TABLET PO (20:56)
[2022-08-24] MEDS: LORazepam 1 MG TABLET PO (20:56)
[2022-08-24] MEDS: diphenhydrAMINE 25 MG CAPSULE 50 MG PO (20:56)
--- NOTE | 2022-08-24 21:00 | PC.NURSE ---
Pt has been very restless since 1900. Attempted to strike Lab staff when drawing blood. Pt up in room banging on monitors, Cursing. Security notified, Notified. Meds given see eMAR. Pt being monitored closely.
--- NOTE | 2022-08-24 21:36 | PC.NURSE ---
Dr wanted Restful Night Vitals so as not to Disturb her.
[2022-08-24 22:15] VITALS: O2SAT 99
[2022-08-24 23:52] VITALS: RESP 16
[2022-08-25] VITALS (8 sets, daily range): BP systolic 137–159; BP diastolic 47–78; PULSE 54–71; RESP 16–18; TEMP 36.1–36.5; O2SAT 93–98
[2022-08-25] MEDS: MIDAZOLAM HCL 1 MG/ML inj 5 MG IM (02:01)
--- NOTE | 2022-08-25 03:37 | PC.NURSE ---
Pt paced in room all night long. Meds had little effect on relaxing Pt. VSS. Pt confused and wants to Get out of here. Appears stable on feet. Computer and trash had to be removed from room because Pt kept touching them.
--- NOTE | 2022-08-25 07:47 | PM.IMPN1 ---
Progress Note: A&P Assessment and plan (1) Acute alteration in mental status: Problem details: - differential diagnosis includes medication reaction verses withdrawal, nutritional deficiency, acute substance abuse, brain metastases - recent head CT without significant change (08/14/22) Status: Acute (2) Self-care deficit for feeding, bathing, and toileting: Problem details: - patient's disease case manager has already initiated guardianship through the [facility] Status: Acute (3) UTI (urinary tract infection): Problem details: Possible Status: Acute (4) Metastatic lung cancer (metastasis from lung to other site): Problem details: - diagnosed 01/2022, known mets to brain. Follows with Oncology at [place], she is not currently receiving chemotherapy. Per [facility] notes: 02/02/2022: Staging MRI head demonstrated numerous subcentimeter enhancing lesions suspicious for widespread cerebral metastatic disease. Staging PET-CT demonstrated FDG uptake in the left upper lung pulmonary mass measuring 3 cm (SUV max 21); mediastinal and left hilar adenopathy (SUV 17.1); diffuse FDG uptake throughout the pancreas,; hypermetabolic foci in bilateral adrenal glands (SUV max 5.4 right, 3.6 left); FDG uptake in T4 vertebra; and uptake within the muscle at the left lateral chest wall, indeterminate for infection/inflammation versus metastatic disease. 02/13/2022: Bronchoscopy and EBUS. Procedural report describes normal airway on the right lung. On the left there was some submucosal irregularity of the left upper lobe bronchus with no obstructing masses. EBUS demonstrated that the left hilar mass measured at least 3 cm. 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 02/16/2022 - Chemotherapy Atezolizumab / CARBOplatin / Etoposide Start Date: 02/16/2022 Cycle 2 delayed 1 week due to patient no show. Cycle 2 day 1 administered on 03/21/2022; patient did not come for days 2 & 3 treatment. 04/11/2022 Imaging 04/11/2022: Chest CT shows marked interval decrease in size of LAILA mass and associated left hilar and mediastinal lymphadenopathy consistent with positive treatment response. Additional 4 mm nodule in LAILA may be slightly enlarged. Status: Chronic (5) Tobacco use disorder: Problem details: - patient requests nicotine patch on admission Status: Chronic (6) Methamphetamine abuse: Problem details: Utox 08/24/22 positive for meth H/o meth use Status: Acute (7) Bipolar disorder: Status: Chronic (8) Anxiety: Status: Chronic Plan I reviewed the H&P and labs from yesterday and the CT scan from 08/14/2022. I spoke with patient's care team about her behavior overnight and this morning and updated them with the plan. She has had increased confusion overnight, may be due to sedating medications given for agitation. Repeat head CT. UA abnormal. UC pending. Possible UTI. Start antibiotic. Await guardianship. She is unable to care for herself at home and will need placement. Time Spent With Patient Total time spent: Today I spent 35 minutes rounding on the patient. Greater than 50% included discussing care with the team, reviewing data, updating and managing the care plan. Subjective Time Seen by Provider: 07:36 Date Seen: 08/25/22 Interval history: This is a 66-year-old female with metastatic lung cancer with widespread brain metastases and a known history of methamphetamine abuse admitted last night for mental status change, bizarre behaviors, and frequent ER visits over the last 3 weeks. Her disease case manager has already initiated pursuing guardianship through the [facility]. Overnight, she was wandering, throwing things on the floor, and picking at things in her room. She was given several medications for agitation and is more confused and sleepy this morning. When I walked in, she was standing in the room with multiple items strewn about her on the floor. When I asked if she was having pain, she replied ?yes, in my breakfast. She then told me that she wanted to go visit the store. She thought she was in the [place], and does not know the day, the month or even the season. Exam Narrative: Exam Narrative: General: No acute distress. Pleasant, confused. Awake, alert, oriented only to self. Once I got her into bed to examine her, she was sleepy, but easily arousable. No pallor. No jaundice. Oropharynx: Clear. Mucous membranes moist. Cardiovascular: Regular rate and rhythm. No murmur appreciated at this time. Respiratory: Clear to auscultation bilaterally. No wheezes or crackles. Abdomen: Bowel sounds present. Soft, nondistended, nontender. Extremities: No pedal edema. Neuro: Confused has above. Some word salad. Difficulty following commands. Poor attention. Due to this I am unable to get a more complete neuro exam although her gait was within normal limits without ataxia and she was moving an using all limbs without difficulty. Const: Vital Signs, click to edit/add: Vital Signs - 24 hr 08/24/22 15:24 08/24/22 18:05 08/24/22 18:06 Temperature 98.2 F Pulse Rate [Left P ulse Oximeter] 74 Pulse Rate [Pulse Oximeter] 79 Respiratory Rate 23 Blood Pressure [Ri ght Arm] 140/88 H Blood Pressure [Ri ght Upper Arm] 141/78 H Pulse Oximetry 94 96 96 Oxygen Delivery Me thod Room Air Room Air Room Air 08/24/22 19:07 08/24/22 22:15 08/24/22 23:52 Temperature 98.2 F Pulse Rate [Left P ulse Oximeter] Pulse Rate [Pulse Oximeter] 71 Respiratory Rate 18 16 Blood Pressure [Ri ght Arm] 131/75 Blood Pressure [Ri ght Upper Arm] Pulse Oximetry 99 99 Oxygen Delivery Me thod Room Air Room Air 08/25/22 05:46 Temperature Pulse Rate [Left P ulse Oximeter] Pulse Rate [Pulse Oximeter] Respiratory Rate 16 Blood Pressure [Ri ght Arm] Blood Pressure [Ri ght Upper Arm] Pulse Oximetry Oxygen Delivery Me thod Documenting provider has reviewed patient's vital signs: yes Labs Labs: Laboratory Results - last 24 hr 08/24/22 08/24/22 08/24/22 17:30 18:29 19:10 WBC 6.63 RBC 4.44 Hgb 13.4 Hct 41.0 MCV 92 MCH 30 MCHC 33 RDW Coeff of Michelle 12.9 Plt Count 200 Neut % (Auto) 41.8 L Lymph % (Auto) 48.6 H Appling % (Auto) 8.1 Eos % (Auto) 1.2 Baso % (Auto) 0.3 Neut # (Auto) 2.80 Lymph # (Auto) 3.20 H Appling # (Auto) 0.50 Eos # (Auto) 0.08 Baso # (Auto) 0.02 Abs Immat Gran (auto) 0.00 Imm/Tot Granulo (auto) 0.0 Sodium Potassium Chloride Carbon Dioxide BUN Creatinine Estimated Creat Clear Estimated GFR Glucose Calcium Total Bilirubin AST ALT Alkaline Phosphatase Total Protein Albumin Urine Color Yellow Urine Appearance Clear Urine pH 5.5 Ur Specific Baldwin >= 1.030 Urine Protein 1+ A Urine Glucose (UA) Negative Urine Ketones Trace A Urine Blood Negative Urine Nitrite Negative Urine Bilirubin 1+ A Urine Urobilinogen 1.0 Ur Leukocyte Esterase 1+ A Urine RBC 5-10 A Urine WBC 25-50 A Ur Squamous Epith Cells Moderate A Urine Bacteria Moderate A Urine Opiates Screen Ur Oxycodone Screen Urine Methadone Screen Ur Propoxyphene Screen Ur Barbiturates Screen U Tricyclic Antidepress Ur Phencyclidine Scrn Ur Amphetamines Screen U Methamphetamines Scrn U Benzodiazepines Scrn Urine Cocaine Screen U Marijuana (THC) Screen Ur Drug Screen Comment SARS-CoV-2 (PCR) Negative SARS-CoV-2 08/24/22 08/24/22 19:10 19:30 WBC RBC Hgb Hct MCV MCH MCHC RDW Coeff of Michelle Plt Count Neut % (Auto) Lymph % (Auto) Appling % (Auto) Eos % (Auto) Baso % (Auto) Neut # (Auto) Lymph # (Auto) Appling # (Auto) Eos # (Auto) Baso # (Auto) Abs Immat Gran (auto) Imm/Tot Granulo (auto) Sodium 145 Potassium 3.9 Chloride 108 Carbon Dioxide 32 BUN 30 Creatinine 0.6 Estimated Creat Clear 47.14 Estimated GFR 98 Glucose 103 Calcium 9.5 Total Bilirubin 0.5 AST 21 ALT 19 Alkaline Phosphatase 69 Total Protein 7.6 Albumin 4.5 Urine Color Urine Appearance Urine pH Ur Specific Baldwin Urine Protein Urine Glucose (UA) Urine Ketones Urine Blood Urine Nitrite Urine Bilirubin Urine Urobilinogen Ur Leukocyte Esterase Urine RBC Urine WBC Ur Squamous Epith Cells Urine Bacteria Urine Opiates Screen Negative Ur Oxycodone Screen Negative Urine Methadone Screen Negative Ur Propoxyphene Screen Negative Ur Barbiturates Screen Negative U Tricyclic Antidepress Negative Ur Phencyclidine Scrn Negative Ur Amphetamines Screen Negative U Methamphetamines Scrn POSITIVE A* U Benzodiazepines Scrn Negative Urine Cocaine Screen Negative U Marijuana (THC) Screen Negative Ur Drug Screen Comment See Note SARS-CoV-2 (PCR)
--- NOTE | 2022-08-25 08:04 | CRLHL7_ITS ---
For Patients: As a result of the Century Cures Act, medical imaging exams and procedure reports are released immediately into your electronic medical record. You may view this report before your referring provider. If you have questions, please contact your health care provider. INDICATION: INCREASED CONFUSION. KNOWN LUNG CANCER WITH METS TO HEAD COMPARISON: 08.14.22 TECHNIQUE: A CT volumetric acquisition was performed of the brain without IV contrast. Please note that all CT scans at this facility use dose modulation, iterative reconstruction, and/or weight-based dosing when appropriate to reduce radiation dose to as low as reasonably achievable. FINDINGS: Interval development of 7 millimeter hemorrhage within 1 of the known left parietal metastases. Similar appearance of hemorrhagic metastatic lesion within the right frontal lobe and left frontal lobe. Innumerable metastatic hypodense masses are present throughout the brain measuring up to 1.5 cm. No herniation, midline shift or hydrocephalus. No extra-axial fluid. No fracture. Sinuses clear. IMPRESSION: New hemorrhagic metastatic lesion within the left parietal lobe measuring [address] Recio 8:55 a.m. 08/25/2022. Please note that all CT scans at this facility use dose modulation, iterative reconstruction, and/or weight-based dosing when appropriate to reduce radiation dose to as low as reasonably achievable. Dictated by Zacarias Bolton MD @ 08/25/2022 8:55:39 AM (Electronically Signed)
--- NOTE | 2022-08-25 11:16 | REH.PT ---
Pt orders received, chart reviewed. Patient attempted x2 times with patient declining therapy both times. Will continue to follow and try patient tomorrow.
--- NOTE | 2022-08-25 19:33 | PC.NURSE ---
End of Shift: Patient alert to self. Afebrile. Denies pain. Up frequently in room and to chair with SBA, does not use call light. Walk in hallway x1. Frequent redirection needed. Tolerating regular diet with no nausea.
[2022-08-25] MEDS: NICOTINE 7 MG PATCH 1 PATCH TRANSDERMA (20:37)
[2022-08-25] MEDS: LORazepam 1 MG TABLET PO (20:42)
[2022-08-25] MEDS: MELATONIN 3 MG TABLET PO (20:42)
[2022-08-26] VITALS (7 sets, daily range): BP systolic 139; BP diastolic 71–77; PULSE 70–80; RESP 18–20; TEMP 36.2–36.6; O2SAT 93–99
[2022-08-26] MEDS: LORazepam 1 MG TABLET PO ×2 (05:17→20:22)
--- NOTE | 2022-08-26 05:34 | PC.NURSE ---
[id number]: Patient in a confused state with disorganized speech. Restless throughout shift resting on and off. Ativan administered x2 for agitation and restlessness. Patient remains in a constantly confused state. Requires continuous redirection and verbal cues. Alert to self only. Confusion increased during shift and aggression decreased.
--- NOTE | 2022-08-26 10:49 | PM.IMPN1 ---
Progress Note: A&P Assessment and plan (1) Acute alteration in mental status: Problem details: - differential diagnosis includes medication reaction verses withdrawal, nutritional deficiency, acute substance abuse, brain metastases - head CT 08/25/22 shows bleeding metastasis, suspect this is the cause of AMS. No intervention available for this. Consider dexamethasone once guardianship is in place to help guide treatment decisions. Status: Acute (2) Self-care deficit for feeding, bathing, and toileting: Problem details: - patient's nurse case manager has already initiated guardianship through the [facility]; I have been unable to get a hold of her son or any other family this weekend. Status: Acute (3) UTI (urinary tract infection): Problem details: Possible Status: Acute Assessment and Plan: Continue BID bactrim, day 2/3. (4) Metastatic lung cancer (metastasis from lung to other site): Problem details: - diagnosed 01/2022, known mets to brain. Follows with Oncology at [place], she is not currently receiving chemotherapy. Per [facility] notes: 02/02/2022: Staging MRI head demonstrated numerous subcentimeter enhancing lesions suspicious for widespread cerebral metastatic disease. Staging PET-CT demonstrated FDG uptake in the left upper lung pulmonary mass measuring 3 cm (SUV max 21); mediastinal and left hilar adenopathy (SUV 17.1); diffuse FDG uptake throughout the pancreas,; hypermetabolic foci in bilateral adrenal glands (SUV max 5.4 right, 3.6 left); FDG uptake in T4 vertebra; and uptake within the muscle at the left lateral chest wall, indeterminate for infection/inflammation versus metastatic disease. 02/13/2022: Bronchoscopy and EBUS. Procedural report describes normal airway on the right lung. On the left there was some submucosal irregularity of the left upper lobe bronchus with no obstructing masses. EBUS demonstrated that the left hilar mass measured at least 3 cm. 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 02/16/2022 - Chemotherapy Atezolizumab / CARBOplatin / Etoposide Start Date: 02/16/2022 Cycle 2 delayed 1 week due to patient no show. Cycle 2 day 1 administered on 03/21/2022; patient did not come for days 2 & 3 treatment. 04/11/2022 Imaging 04/11/2022: Chest CT shows marked interval decrease in size of LAILA mass and associated left hilar and mediastinal lymphadenopathy consistent with positive treatment response. Additional 4 mm nodule in LAILA may be slightly enlarged. Status: Chronic (5) Tobacco use disorder: Problem details: - patient requests nicotine patch on admission Status: Chronic (6) Methamphetamine abuse: Problem details: Utox 08/24/22 positive for meth H/o meth use Status: Acute (7) Bipolar disorder: Status: Chronic (8) Anxiety: Status: Chronic Plan 66 y/o female with widely metastatic brain metastases from lung cancer, some of them are hemorrhagic. No treatment options available. I tried calling her son, Deven at [phone], again today and got voicemail. Awaiting guardianship. She is unable to care for herself at home and will need placement. Due to poor prognosis I would also recommend hospice and comfort cares at this time. Dexamethasone may be helpful. Awake guardianship. No safe discharge plan at present. Subjective Time Seen by Provider: 10:00 Date Seen: 08/26/22 Interval history: Angie tells me she feels fine. Most of her speech is word salad. Exam Narrative: Exam Narrative: General: No acute distress. Pleasant, confused, word salad. Awake, alert, oriented only to self. Cardiovascular: Regular rate and rhythm. No murmur appreciated at this time. Respiratory: Clear to auscultation bilaterally. No wheezes or crackles. Const: Vital Signs, click to edit/add: Vital Signs - 24 hr 08/25/22 11:00 08/25/22 15:00 08/25/22 15:00 Temperature 97.7 F 97.0 F L Pulse Rate [Pulse Oximeter] 54 L 66 Respiratory Rate 16 16 Blood Pressure [Ri ght Arm] 152/72 H 141/78 H Pulse Oximetry 98 96 96 Oxygen Delivery Me thod Room Air Room Air Room Air 08/25/22 15:00 08/25/22 19:00 08/25/22 22:39 Temperature Pulse Rate [Pulse Oximeter] 66 71 Respiratory Rate 16 18 18 Blood Pressure [Ri ght Arm] 137/47 L Pulse Oximetry 93 Oxygen Delivery Me thod Room Air 08/25/22 22:44 08/25/22 23:30 08/26/22 03:00 Temperature Pulse Rate [Pulse Oximeter] Respiratory Rate 18 18 18 Blood Pressure [Ri ght Arm] Pulse Oximetry 93 Oxygen Delivery Me thod Room Air 08/26/22 07:00 08/26/22 07:00 08/26/22 07:00 Temperature 97.1 F L Pulse Rate [Pulse Oximeter] 71 71 Respiratory Rate 20 20 Blood Pressure [[facility] Arm] 139/77 Pulse Oximetry 93 93 Oxygen Delivery Me thod Room Air Room Air Documenting provider has reviewed patient's vital signs: yes
[2022-08-26] MEDS: NICOTINE 7 MG PATCH 1 PATCH TRANSDERMA (18:41)
[2022-08-26] MEDS: MELATONIN 3 MG TABLET PO (20:22)
[2022-08-26] MEDS: diphenhydrAMINE 25 MG CAPSULE 50 MG PO (21:35)
--- NOTE | 2022-08-26 22:37 | PC.NURSE ---
Shift [id number]- Patient is resistive to care. Unable to obtain blood pressures due to noncooperation or continuous arm movement while cuff is on. She is up to chair for supper. Tonight, she has some increased agitation- taking gown off twice and throwing a glass of juice against wall. PRN medications administered- see eMAR. She is up and down from bed occasionally. She is incontinent- pericares provided.
[2022-08-27] VITALS (8 sets, daily range): BP systolic 149–163; BP diastolic 78–106; PULSE 66–82; RESP 18–24; TEMP 35.9–36; O2SAT 96
[2022-08-27] MEDS: ACETAMINOPHEN 325 MG TABLET 975 MG PO ×2 (00:19→10:35)
[2022-08-27] MEDS: LORazepam 1 MG TABLET PO ×3 (01:08→21:24)
--- NOTE | 2022-08-27 04:55 | PC.NURSE ---
[id number]: Patient restless throughout night, up and down frequently. Ativan x1 administered with little relief. No verbal or physical aggression this shift. Patient pleasant but constantly confused. Continent/incontinent. Tylenol administered for headache. SBA w/walker. Patient appears to be more steady on her feet than writers last shift with patient.
--- NOTE | 2022-08-27 15:53 | PM.IMPN1 ---
Progress Note: A&P Assessment and plan (1) Acute alteration in mental status: Problem details: - differential diagnosis includes medication reaction verses withdrawal, nutritional deficiency, acute substance abuse, brain metastases - head CT 08/25/22 shows bleeding metastasis, suspect this is the cause of AMS. No intervention available for this. Consider dexamethasone once guardianship is in place to help guide treatment decisions. Status: Acute (2) Self-care deficit for feeding, bathing, and toileting: Problem details: - patient's complex case manager has already initiated guardianship through the [facility]; I have been unable to get a hold of her son or any other family this weekend. Status: Acute (3) UTI (urinary tract infection): Problem details: Possible Status: Acute Assessment and Plan: Continue BID bactrim, day 2/3. (4) Metastatic lung cancer (metastasis from lung to other site): Problem details: - diagnosed 01/2022, known mets to brain. Follows with Oncology at [place], she is not currently receiving chemotherapy. Per [facility] notes: 02/02/2022: Staging MRI head demonstrated numerous subcentimeter enhancing lesions suspicious for widespread cerebral metastatic disease. Staging PET-CT demonstrated FDG uptake in the left upper lung pulmonary mass measuring 3 cm (SUV max 21); mediastinal and left hilar adenopathy (SUV 17.1); diffuse FDG uptake throughout the pancreas,; hypermetabolic foci in bilateral adrenal glands (SUV max 5.4 right, 3.6 left); FDG uptake in T4 vertebra; and uptake within the muscle at the left lateral chest wall, indeterminate for infection/inflammation versus metastatic disease. 02/13/2022: Bronchoscopy and EBUS. Procedural report describes normal airway on the right lung. On the left there was some submucosal irregularity of the left upper lobe bronchus with no obstructing masses. EBUS demonstrated that the left hilar mass measured at least 3 cm. 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 02/16/2022 - Chemotherapy Atezolizumab / CARBOplatin / Etoposide Start Date: 02/16/2022 Cycle 2 delayed 1 week due to patient no show. Cycle 2 day 1 administered on 03/21/2022; patient did not come for days 2 & 3 treatment. 04/11/2022 Imaging 04/11/2022: Chest CT shows marked interval decrease in size of LAILA mass and associated left hilar and mediastinal lymphadenopathy consistent with positive treatment response. Additional 4 mm nodule in LAILA may be slightly enlarged. Status: Chronic (5) Tobacco use disorder: Problem details: - patient requests nicotine patch on admission Status: Chronic (6) Methamphetamine abuse: Problem details: Utox 08/24/22 positive for meth H/o meth use Status: Acute (7) Bipolar disorder: Status: Chronic (8) Anxiety: Status: Chronic Plan 66 y/o female with widely metastatic brain metastases from lung cancer, some of them are hemorrhagic. No treatment options available. Awaiting guardianship. She is unable to care for herself at home and will need placement. Due to poor prognosis I would also recommend hospice and comfort cares at this time. Dexamethasone may be helpful, but it may make her more agitated, so I will wait until guardianship is in place before starting this. No safe discharge plan at present. Subjective Time Seen by Provider: 07:45 Date Seen: 08/27/22 Interval history: Tells me she feels bine today. She is not following commands and is restless, but staying in bed this morning. Exam Narrative: Exam Narrative: General: Agitated. Confused. Awake, alert. Not following commands. Cardiovascular: Regular rate and rhythm. No murmur appreciated at this time. Respiratory: Clear to auscultation bilaterally. No wheezes or crackles. Const: Vital Signs, click to edit/add: Vital Signs - 24 hr 08/26/22 19:03 08/26/22 23:30 08/26/22 23:00 Temperature 97.6 F Pulse Rate [Pulse Oximeter] 80 Respiratory Rate 18 20 20 Blood Pressure [Ri ght Arm] Pulse Oximetry 96 Oxygen Delivery Me thod Room Air 08/26/22 23:00 08/27/22 02:58 08/27/22 04:53 Temperature Pulse Rate [Pulse Oximeter] Respiratory Rate 20 20 20 Blood Pressure [Ri ght Arm] Pulse Oximetry 96 Oxygen Delivery Me thod Room Air 08/27/22 07:00 08/27/22 11:00 08/27/22 07:00 Temperature 96.7 F L Pulse Rate [Pulse Oximeter] 72 75 Respiratory Rate 24 24 24 Blood Pressure [Ri ght Arm] 149/78 H Pulse Oximetry 96 96 Oxygen Delivery Me thod Room Air Room Air 08/27/22 07:00 Temperature Pulse Rate [Pulse Oximeter] Respiratory Rate 24 Blood Pressure [Ri ght Arm] Pulse Oximetry Oxygen Delivery Me thod Documenting provider has reviewed patient's vital signs: yes
--- NOTE | 2022-08-27 16:36 | PC.SOCIAL ---
Phone call to Elena Moreno at [facility]. Elena informed that pt's court hearing for guardianship will be on August 31, 2022 at 11:30 am via zoom. [facility] [address] sent fax with court paperwork that needs to be served to pt. Received fax and met with pt in pt's room to serve guardianship paperwork and court notice. Informed pt that this worker will assist pt with logging into court on Saturday at 11:30am. Completed affidavit of person service form and sent to Katelynn Villarreal at [email or web address]. Received an e-mail back confirming receipt.
[2022-08-27] MEDS: NICOTINE 7 MG PATCH 1 PATCH TRANSDERMA (18:33)
--- NOTE | 2022-08-27 18:51 | PC.NURSE ---
End of shift-- Pt has been restless most of the day. She generally uncooperative with assessment, but VSS and pt is afebrile. She is occasionally tachypneic and appears SOB with exertion. SPO2 maintained >90% on RA. She denied any pain, but was given Tylenol this morning for general discomfort. She is disoriented as per her baseline and mood is labile. At times she is pleasant and cooperative, at other times frustrated and angry and at times pt appeared tearful. LS CTA. BS+ x4 and pt denied nausea. She tolerated a regular diet without difficulty. She has not had a BM. Pt is incontinent of urine but goes infrequently. Attempted to void unsuccessfully and pt was bladder scanned for 22ml following attempt. She ambulated in hallways and room with SBA and tolerated it well. Pt has a walker, but struggles to comprehend how to use it. 1:1 care with ROBERT or network security officer most of the day. Report to oncoming shift.
[2022-08-27] MEDS: MELATONIN 3 MG TABLET PO (21:24)
[2022-08-27] MEDS: diphenhydrAMINE 25 MG CAPSULE 50 MG PO (21:59)
[2022-08-27] MEDS: OLANZapine 5 MG/ML inj IM (22:14)
[2022-08-28] MEDS: LORazepam 1 MG TABLET PO ×2 (01:08→08:15)
[2022-08-28] MEDS: ACETAMINOPHEN 325 MG TABLET 975 MG PO (01:09)
[2022-08-28 03:00] VITALS: RESP 18
[2022-08-28] MEDS: OLANZapine 5 MG/ML inj IM ×3 (03:53→12:19)
--- NOTE | 2022-08-28 04:25 | PC.NURSE ---
Shift note -: Pt restless, climbing OOB, but allowing staff to asst so Ativan and Melatonin were given @ 2129 to help pt relax w/o any change in behavior so Benadryl was given @ 2199. Behavior quickly escalated to pt sitting then lying down on floor, mocking staff, swearing @ staff, and striking @ staff. Call placed to Dr. Chapman @ 2209, order for IM Zyprexa received and given. Zyprexa helped in treating pt's aggression but remained restless, climbing OOB so Ativan and Tylenol given @ 0100 along w/ giving the pt a shower w/ again no help in decreasing restlessness but pt's behavior remained free of aggression. Pt's aggression returned @ 0340 w/ her swearing and spitting @ staff so another dose of IM Zyprexa was give @ 0350. Currently pt continues to roll side to side in bed, but appears to have a demeanor free of aggression.
[2022-08-28 06:00] VITALS: RESP 18
[2022-08-28 07:45] VITALS: RESP 18; RESP 20
--- NOTE | 2022-08-28 09:39 | PC.SOCIAL ---
Social work: Received call from Mary Avila ([phone]) emergency guardian for pt through [facility]. Provided this contact information to
[2022-08-28] MEDS: dexAMETHasone 4 MG TABLET PO (10:13)
[2022-08-28] MEDS: fentaNYL 12 mcg/hr PATCH 1 PATCH TRANSDERMA (10:14)
[2022-08-28] MEDS: MORPHINE 10 MG/0.5 ML ORAL SOLN PO ×2 (11:00→12:01)
--- NOTE | 2022-08-28 13:53 | PM.IMPN1 ---
Progress Note: A&P Assessment and plan (1) Acute alteration in mental status: Problem details: - differential diagnosis includes medication reaction verses withdrawal, nutritional deficiency, acute substance abuse, brain metastases - head CT 08/25/22 shows bleeding metastasis, suspect this is the cause of AMS. No intervention available for this. Status: Acute (2) Self-care deficit for feeding, bathing, and toileting: Problem details: - patient's bottle caser has already initiated guardianship through the [facility]; was unable to get a hold of her son or any other family this past weekend. Status: Acute (3) UTI (urinary tract infection): Problem details: Possible Status: Acute Assessment and Plan: Continue BID bactrim, day 3. (4) Metastatic lung cancer (metastasis from lung to other site): Problem details: - diagnosed 01/2022, known mets to brain. Follows with Oncology at [facility], she is not currently receiving chemotherapy. Per [facility] notes: 02/02/2022: Staging MRI head demonstrated numerous subcentimeter enhancing lesions suspicious for widespread cerebral metastatic disease. Staging PET-CT demonstrated FDG uptake in the left upper lung pulmonary mass measuring 3 cm (SUV max 21); mediastinal and left hilar adenopathy (SUV 17.1); diffuse FDG uptake throughout the pancreas,; hypermetabolic foci in bilateral adrenal glands (SUV max 5.4 right, 3.6 left); FDG uptake in T4 vertebra; and uptake within the muscle at the left lateral chest wall, indeterminate for infection/inflammation versus metastatic disease. 02/13/2022: Bronchoscopy and EBUS. Procedural report describes normal airway on the right lung. On the left there was some submucosal irregularity of the left upper lobe bronchus with no obstructing masses. EBUS demonstrated that the left hilar mass measured at least 3 cm. 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 02/16/2022 - Chemotherapy Atezolizumab / CARBOplatin / Etoposide Start Date: 02/16/2022 Cycle 2 delayed 1 week due to patient no show. Cycle 2 day 1 administered on 03/21/2022; patient did not come for days 2 & 3 treatment. 04/11/2022 Imaging 04/11/2022: Chest CT shows marked interval decrease in size of LAILA mass and associated left hilar and mediastinal lymphadenopathy consistent with positive treatment response. Additional 4 mm nodule in LAILA may be slightly enlarged. Status: Chronic (5) Tobacco use disorder: Problem details: - patient requested nicotine patch on admission Status: Chronic (6) Methamphetamine abuse: Problem details: Utox 08/24/22 positive for meth H/o meth use Status: Acute (7) Bipolar disorder: Status: Chronic (8) Anxiety: Status: Chronic Plan 66 y/o female with widely metastatic brain metastases from lung cancer, some of them are hemorrhagic. No treatment options available. She is having significant in severe insomnia in becoming increasingly agitated. She is unable to care for herself at home and will need placement. Fortunately received word that she has a temporary guardian in place of the name Mary Avila [facility] guardianship services. Her phone number is [phone]. I spoke with her at 10:36 a.m. and updated her on the situation. I noted that Angie has been here for a few days and has metastatic lung cancer to the brain. This is widely metastatic in the brain and has several bleeding metastases. Also spoke about her history of methamphetamine abuse. I do not think she is going through withdrawal at this time. I noted that she has become increasingly agitated and appears uncomfortable both from a mental standpoint and is complaining of back pain. I spoke with Mary about the lack of treatment options available to her and her overall poor prognosis. We discussed possibility of comfort care assistance there are no treatment options. Specifically we then discussed using morphine for pain control and comfort as well as lorazepam and Haldol for agitation and delusions or paranoia. I noted that we had already started a low-dose fentanyl patch for pain and dexamethasone to help with any swelling that may be taking place around the metastases. We discussed that comfort cares would include not checking vital signs and purely focusing on whether not Angie is comfortable and treating with medications to achieve comfort. Mary agreed with this plan of care. She requested that I send a copy of this note to her office for her records. I have changed Angie to comfort cares, discontinued checking vital signs, and have started her on morphine for pain, lorazepam for agitation, and Haldol for delusions and agitation. These are p.r.n. medications. She remains on a fentanyl patch, olanzapine as needed for agitation, and dexamethasone daily for suspected cerebral swelling due to metastases. I have stopped all other medications that are not directed toward comfort. Time Spent With Patient Total time spent: Today I spent 40 minutes rounding on the patient. Greater than 50% included discussing care with her temporary guardian, the team, reviewing data, updating and managing the care plan. Subjective Time Seen by Provider: 07:54 Date Seen: 08/28/22 Interval history: nAgie has been essentially awake for 3 days straight now. She is generally agitated despite getting several medications overnight. She was starting to head out and lash out at the nurses this morning. She would not let me examine her with the exception of listening to her lungs. She complains of back pain. Exam Narrative: Exam Narrative: General: Agitated, confused. Respiratory: Clear to auscultation bilaterally. No wheezes or crackles. Const: Vital Signs, click to edit/add: Vital Signs - 24 hr 08/27/22 15:00 08/27/22 15:00 08/27/22 15:00 Temperature Pulse Rate [Pulse Oximeter] 66 66 Respiratory Rate 24 24 Blood Pressure [Ri ght Arm] Pulse Oximetry Oxygen Delivery Tx thod Room Air 08/27/22 21:25 08/27/22 23:00 08/27/22 23:00 Temperature 96.8 F L Pulse Rate [Pulse Oximeter] 82 Respiratory Rate 18 18 18 Blood Pressure [Ri ght Arm] 163/106 H Pulse Oximetry 96 96 Oxygen Delivery Tx thod Room Air Room Air Room Air 08/27/22 23:30 08/28/22 03:00 08/28/22 06:00 Temperature Pulse Rate [Pulse Oximeter] Respiratory Rate 18 18 18 Blood Pressure [Ri ght Arm] Pulse Oximetry Oxygen Delivery Tx thod Room Air 08/28/22 07:45 08/28/22 07:45 Temperature Pulse Rate [Pulse Oximeter] Respiratory Rate 18 20 Blood Pressure [Ri ght Arm] Pulse Oximetry Oxygen Delivery Tx thod
--- NOTE | 2022-08-28 15:25 | PC.NURSE ---
PATIENT RESTLESS AND AGITATED AT BEGINNING OF SHIFT. ATTEMPTING TO HIT STAFF AND NOT DIRECTABLE. DR. KRISHNAMURTHY UPDATED AND IM ZYPREXA ADMINISTERED. PATIENT DID BECOME LESS AGITATED BUT CONTINUED TO BE RESTLESS. PATIENT DID STATE HER BACK WAS HURTING. PATIENT ATE A FEW BITES OF BREAKFAST. MORPHINE ADMINISTERED AND PATIENT RESTED FOR SHORT PERIODS OF TIME. PATIENT BECAME AGITATED AGAIN AND ATTEMPTING TO HIT STAFF. ZYPREXA ADMINISTERED AGAIN AND PATIENT HAS BEEN SLEEPING SINCE. REFUSED FURTHER FOOD OR DRINK.
--- NOTE | 2022-08-28 16:50 | PC.SOCIAL ---
Received a phone call from pt's newly appointed guardian, Maryulices Will, at [phone]. Mary works with [facility] of [facility]. Contact information is listed below. Mary will follow up with e-mail to provide preferences for placement. Informed Mary that MD would like to discuss pt's treatment and medications. Provided MD and charge nurse with guardian contact information. IRMA Machuca Social Work-Guardian [facility] of [address] [address] Office: [phone] Please note e-mail address change: [email or web address] After Hour Crisis Line: [phone] Received a phone call from [employer] requesting that pt's memory care program resident, Sandra Will, be updated when discharge plans are known. Informed that there are no discharge plans set as of now, but this worker is locating placement for pt. Received a phone call from Straightener Hand, Angela Marshall, at [phone]. Angela informed that she is pt's appointed state's attorney for the upcoming guardianship matter in [facility] [address]. Provided update on how pt is doing at the hospital. Angela will call for an update on to determine if it is beneficial for her to meet pt in person before court on Saturday. If it is not deemed beneficial then Angela will meet with pt in a break out session via zoom, prior to the guardianship hearing on Saturday. Informed that this worker will assist pt in logging onto the zoom session for the court hearing. Social Work will follow up as necessary.
[2022-08-28] MEDS: NICOTINE 7 MG PATCH 1 PATCH TRANSDERMA (18:56)
--- NOTE | 2022-08-28 22:17 | PC.NURSE ---
Shift Summary: Patient has been sleeping throughout shift, when checked on is in a different position in bed, able to turn and reposition per self. Had small amount of urine out in brief, bladder scan done and showed 56cc. Patient woken up from cares, was cooperative, fell asleep again right away. Encouraged fluids however refused.
[2022-08-28 23:30] VITALS: RESP 20
[2022-08-29 05:12] VITALS: RESP 20
--- NOTE | 2022-08-29 06:24 | PC.NURSE ---
23-07: pt asleep majority of shift. Attempted to get up to use BSC, pt did not void. Heavy 2 assist with gb, pt unable to use walker. Pt unable to communicate clearly, mumbles some words, minimally compliant with brief change. Attempted oral cares, pt became agitated, travel writer and aid got pt comfortable and she fell asleep.?
[2022-08-29] MEDS: OLANZapine 5 MG/ML inj IM ×2 (07:22→13:17)
[2022-08-29] MEDS: MORPHINE 10 MG/0.5 ML ORAL SOLN PO ×6 (09:03→23:59)
--- NOTE | 2022-08-29 09:25 | PM.IMPN1 ---
Progress Note: A&P Assessment and plan (1) Palliative care status: Status: Acute (2) Need for comfort care: Status: Acute (3) Acute alteration in mental status: Problem details: - differential diagnosis includes medication reaction verses withdrawal, nutritional deficiency, acute substance abuse, brain metastases - head CT 08/25/22 shows bleeding metastasis, suspect this is the cause of AMS. No intervention available for this. Status: Acute (4) Self-care deficit for feeding, bathing, and toileting: Problem details: - patient's skilled nursing case manager has already initiated guardianship through the [facility] Status: Acute (5) UTI (urinary tract infection): Problem details: Urine Culture Final ML < 50,000 COL/ML MIXED GRAM POSITIVE ASHIA ISOLATED NO FURTHER WORKUP Status: Resolved Assessment and Plan: Completed 3 day course of Bactrim (6) Metastatic lung cancer (metastasis from lung to other site): Problem details: - diagnosed 01/2022, known mets to brain. Follows with Oncology at [facility], she is not currently receiving chemotherapy. Per [facility] notes: 02/02/2022: Staging MRI head demonstrated numerous subcentimeter enhancing lesions suspicious for widespread cerebral metastatic disease. Staging PET-CT demonstrated FDG uptake in the left upper lung pulmonary mass measuring 3 cm (SUV max 21); mediastinal and left hilar adenopathy (SUV 17.1); diffuse FDG uptake throughout the pancreas,; hypermetabolic foci in bilateral adrenal glands (SUV max 5.4 right, 3.6 left); FDG uptake in T4 vertebra; and uptake within the muscle at the left lateral chest wall, indeterminate for infection/inflammation versus metastatic disease. 02/13/2022: Bronchoscopy and EBUS. Procedural report describes normal airway on the right lung. On the left there was some submucosal irregularity of the left upper lobe bronchus with no obstructing masses. EBUS demonstrated that the left hilar mass measured at least 3 cm. 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 02/16/2022 - Chemotherapy Atezolizumab / CARBOplatin / Etoposide Start Date: 02/16/2022 Cycle 2 delayed 1 week due to patient no show. Cycle 2 day 1 administered on 03/21/2022; patient did not come for days 2 & 3 treatment. 04/11/2022 Imaging 04/11/2022: Chest CT shows marked interval decrease in size of LAILA mass and associated left hilar and mediastinal lymphadenopathy consistent with positive treatment response. Additional 4 mm nodule in LAILA may be slightly enlarged. Status: Chronic (7) Tobacco use disorder: Status: Chronic (8) Methamphetamine abuse: Problem details: Utox 08/24/22 positive for meth H/o meth use Status: Acute (9) Bipolar disorder: Status: Chronic (10) Anxiety: Status: Chronic Plan 66 y/o female with widely metastatic brain metastases from lung cancer, some of them are hemorrhagic. No treatment options available. She was having significant in severe insomnia and becoming increasingly agitated. She is unable to care for herself at home and will need placement. Temporary guardian is now in place: In [facility], Mary Avila, . I spoke with her yesterday and she agreed to comfort cares for Angie. Since that time Angie has been mostly resting comfortably. She has declined any food or water and is making very little urine. Overall her status has changed and I believe she is transitioning to imminent. Continue comfort cares. Subjective Time Seen by Provider: 07:40 Date Seen: 08/29/22 Interval history: Angie has been mostly sleeping since yesterday afternoon, when she was made comfort cares. She had a brief episode this morning where she was awake, agitated and confused. Was given olanzapine which helped. She has been refusing to eat or drink. She has had very little urine output. She appears comfortable this morning when I see her, sleeping, arousable, but does not say anything, just moans. Exam Narrative: Exam Narrative: General: Sleeping, arouses to name, she did not look at me despite opening her eyes briefly, moaned, no intelligible speech. Oropharynx: Clear. Mucous membranes very dry. Cardiovascular: Regular rate and rhythm. No murmurs, gallops, or rubs. Respiratory: Clear to auscultation bilaterally. No wheezes or crackles. Const: Vital Signs, click to edit/add: Vital Signs - 24 hr 08/28/22 23:30 08/29/22 05:12 Respiratory Rate 20 20 Documenting provider has reviewed patient's vital signs: yes
[2022-08-29] MEDS: LORazepam 1 MG TABLET PO (14:37)
[2022-08-29] MEDS: HALOPERIDOL 5 MG/ML INJ 4 MG IM (15:06)
[2022-08-29] MEDS: fentaNYL 25 MCG/HR PATCH 1 PATCH TRANSDERMA (15:35)
--- NOTE | 2022-08-29 16:38 | PC.SOCIAL ---
Phone call to pt's guardian, Mary Avila, to provide update and ensure that family has been contacted. Mary states that she has contacted some of the family and has talked to pt's daughter, Jonelle Alcaraz ([phone]), and Jonelle has more medical questions. Mary requests to have MD do a three way call or a care conference. Provided information and contact phone numbers to MD. Phone call to Elena Moreno at [facility] to provide an update. Phone call to pt's geothermal electrical engineer Angela Marshall, to provide an update. Angela will call back tomorrow for an additional update before court hearing on Saturday. Pt's daughter called to pt's room and nurse Pamela provided the phone to pt. Pt talked on the phone briefly to daughter. Received a voicemail from pt's brother, Jamari Kong, requesting an update on pt's status. Made a phone call to Pt's son, Jamari, and left a voicemail providing the phone number to Med/Surg to speak with nursing and get a medical update on pt. Social Work will follow up as necessary.
[2022-08-29] MEDS: LORazepam 2 MG/ML inj IM (17:00)
--- NOTE | 2022-08-29 17:25 | PC.NURSE ---
Addendum entered by Pamela Lopez RN 08/29/22 18:32: Patient has not had void this shift, bladder scan done and shoes 495cc, straight cath performed with 900cc out. Original Note: Shift Summary: Patient resting on and off throughout shift. Daughter, Jonelle, called earlier and patient was able to talk on the phone with her. During conversation patient was able to answer questions and respond appropriately, speech somewhat mumbled. This afternoon patient started to get more agitated, was swatting at staff, flailing limbs and hanging off side of bed. MD updated, see new orders. Patient will become restless at times and say pain, unable to state where pain is or rate pain, managed with fentanyl patch and PRN medication. Guardian here earlier for visit. Patient frequently repositions self in bed. Per patients guardian, daughter can now be updated on patients condition.
[2022-08-29] MEDS: NICOTINE 7 MG PATCH 1 PATCH TRANSDERMA (18:35)
[2022-08-29 23:30] VITALS: RESP 16
[2022-08-30] MEDS: MORPHINE 10 MG/0.5 ML ORAL SOLN PO ×3 (04:59→08:35)
--- NOTE | 2022-08-30 05:53 | PC.NURSE ---
Patient was comfortable throughout this shift. PRN Morphine x 2 for pain. Staff anticipate pain needs for patient as she is unable to request for pain medication. Safety checks completed, patient repo self in bed. Slept throughout this shift.
[2022-08-30 06:00] VITALS: RESP 16
[2022-08-30] MEDS: LORazepam 2 MG/ML inj IM (07:02)
[2022-08-30 07:30] VITALS: RESP 16
--- NOTE | 2022-08-30 09:11 | P.IMPN_ITS ---
Progress Note: A&P Assessment and plan (1) Palliative care status: Problem details: Patient is now in the last few days of her life. She is not taking significant food or fluid. Will attempt to optimize her medications for pain, agitation, antiseizure treatment. Would like to do this with transdermal fentanyl, buccal or oral medicine if possible or rectal medicine. May need subcutaneous medicine which would be better than IM injections for controlling pain and agitation. Status: Acute (2) Tobacco use disorder: Problem details: Continue nicotine patch Status: Chronic (3) Metastatic lung cancer (metastasis from lung to other site): Problem details: Now terminally ill with life expectancy measured in days - diagnosed 01/2022, known mets to brain. Follows with Oncology at [facility], she is not currently receiving chemotherapy. Per [facility] notes: 02/02/2022: Staging MRI head demonstrated numerous subcentimeter enhancing lesions suspicious for widespread cerebral metastatic disease. Staging PET-CT demonstrated FDG uptake in the left upper lung pulmonary mass measuring 3 cm (SUV max 21); mediastinal and left hilar adenopathy (SUV 17.1); diffuse FDG uptake throughout the pancreas,; hypermetabolic foci in bilateral adrenal glands (SUV max 5.4 right, 3.6 left); FDG uptake in T4 vertebra; and uptake within the muscle at the left lateral chest wall, indeterminate for infection/inflammation versus metastatic disease. 02/13/2022: Bronchoscopy and EBUS. Procedural report describes normal airway on the right lung. On the left there was some submucosal irregularity of the left upper lobe bronchus with no obstructing masses. EBUS demonstrated that the left hilar mass measured at least 3 cm. 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 02/16/2022 - Chemotherapy Atezolizumab / CARBOplatin / Etoposide Start Date: 02/16/2022 Cycle 2 delayed 1 week due to patient no show. Cycle 2 day 1 administered on 03/21/2022; patient did not come for days 2 & 3 treatment. 04/11/2022 Imaging 04/11/2022: Chest CT shows marked interval decrease in size of LAILA mass and as sociated left hilar and mediastinal lymphadenopathy consistent with positive treatment response. Additional 4 mm nodule in LAILA may be slightly enlarged. Status: Chronic (4) Urinary retention: Problem details: Will bladder scan and straight cath as needed until she is sedated enough to have a Calabrese placed for comfort Status: Acute (5) Bipolar disorder: Problem details: Continue comfort cares medications Status: Chronic (6) Anxiety: Problem details: Continue comfort cares medications Status: Chronic (7) Methamphetamine abuse: Problem details: Utox 08/24/22 positive for meth H/o meth use Status: Acute Plan Continue in-hospital to optimize her palliative care. Consider increasing fentanyl patch later today or tomorrow to help managing pain and agitation. Trial of phenobarbital orally or rectally to prevent seizures and manage anxiety. Attempt to get off intramuscular injections. Consider placement for hospice or ongoing hospice care here in the hospital Time Spent With Patient Total time spent: Total time spent today is 40 minutes, all of it in coordination of care and discussing with other providers management of end of life cares Subjective Date Seen: 08/30/22 Interval history: 66-year-old female seen in followup of hospital admission for agitation and altered mental status. Agitation altered mental status are likely a combination of factors. The most important issue is metastatic brain disease. She also has bipolar disorder and methamphetamine abuse in her history. She also has urinary retention and is apparently needing self catheterization. She would benefit from a Calabrese but nursing staff is worried that she would pull it out. She is not taking in significant p.o. food and fluid. And she has been spitting out p.o. meds. Patient is not a candidate for any further intervention for her metastatic brain disease. Guardianship has been obtained because patient is not not able to carry on a conversation about her plan of care. With the guardian the plan has been to provide palliative care at the end of her life. She has been placed on a fentanyl patch and that was increased to 25 mcg yesterday afternoon. That has helped substantially with her agitation. She is receiving regular dosing of IM lorazepam and Haldol. Exam Narrative: Exam Narrative: She is lying in bed. Her eyes are open but is not clear that she is comprehending anything that is said to her. She does follow me with her eyes a little bit. She is nonverbal. She has some spontaneous movement of her arms and legs which is nonpurposeful. Her breathing is unlabored. Palpation over her abdomen is nontender. Const: Vital Signs, click to edit/add: Vital Signs - 24 hr 08/29/22 23:30 08/30/22 06:00 Respiratory Rate 16 16 Documenting provider has reviewed patient's vital signs: yes
[2022-08-30] MEDS: MORPHINE 10 MG/0.5 ML ORAL SOLN BUCCAL ×2 (10:02→20:20)
[2022-08-30] MEDS: PHENobarbitaL 32.4 MG TABLET 64.8 MG PO ×2 (10:02→20:18)
[2022-08-30 15:11] VITALS: RESP 16
--- NOTE | 2022-08-30 15:51 | PC.SOCIAL ---
Addendum entered by RAHUL Bean 08/31/22 20:37: Emergency Doctor has reviewed and agrees with this note. Addendum entered by LEE Muniz Student Scrap Handler 08/30/22 16:09: Spoke with Perri, [facility] requires that pt. is free from agitation for 48 hours in order to admit, unable to admit pt. tomorrow. [facility] will reassess pt. on Saturday. Social work to follow up as needed. Original Note: Social work: Social work reached out to [facility] ([phone], fax [phone]). [facility] has an opening tomorrow. Social work faxed referral. Perri Aliyah with [facility] ([phone]) called to request that she stays updated on pt.'s discharge plan. Sent note from physician detailing pt.'s inability to participate in tomorrow's court hearing to Elena Moreno at [facility] ([email or web address]). Social work to follow up as needed.
--- NOTE | 2022-08-30 16:10 | PC.SOCIAL ---
Received a phone call from pt's guardian, Mary Avila, requesting an update. Provided progress note to guardian. Mary stated that she was wondering if a hr systems analyst could visit pt in her room as pt's brother, Jamari, called and made the request to Mary. Informed Mary that [facility] does not have a hr systems analyst on staff but states [facility] in [place] does come to the hospital by request typically. Mary states she will reach out to [facility] to see if they can accommodate the request. Received a phone call from Elena Moreno at [facility]. Elena requested to find out from if pt can participate in court hearing tomorrow. Spoke with and stated that pt is unable to arouse so pt would not be able to participate in the court hearing. Provided the information to Elena Moreno at [facility]. Received a phone call from pt's managing attorney, Angela Marshall, requesting an update. Informed Angela that pt is unable to attend court due to her current status and informed Angela that [facility] worker, Elena Moreno, has a statement from the informing the court. Angela will update as necessary. Social work will continue to follow up as necessary.
[2022-08-30] MEDS: NICOTINE 7 MG PATCH 1 PATCH TRANSDERMA (18:07)
--- NOTE | 2022-08-30 18:15 | PC.NURSE ---
End of shift. pt was on better behaviors today. she was not hitting and trying to scratch staff. she did not like it when we had to straight cath her. she had flailing limbs and was trying get not let us do this to her. but besides doing yg cares her behavior was not aggressive towards staff. bladder scan was 350 this am and straight cath for 425 and later scan was 129. we can place a Calabrese per Dr. Chapman when appropriate. Pt has been resting on and off throughout shift. she has a fentanyl 25 patch on and she got Roxanol 2 this @ 8 and 10 am. she has not been restless, she does not seem to be in pain. she is moving around in bed. alarms are on she has a brief on she has been continent. Daughter, Jonelle, was called and updated. I Spoke with Perri, [facility] case supervisor.
[2022-08-30 23:00] VITALS: PULSE 82; RESP 16
[2022-08-30 23:30] VITALS: RESP 16
[2022-08-31] MEDS: MORPHINE 10 MG/0.5 ML ORAL SOLN BUCCAL ×8 (01:26→17:29)
[2022-08-31] MEDS: HALOPERIDOL 5 MG/ML INJ 4 MG IM (01:28)
[2022-08-31] MEDS: LORazepam 2 MG/ML inj IM ×2 (02:58→04:14)
--- NOTE | 2022-08-31 05:19 | PC.NURSE ---
Patient was restless at the beginning of this shift. She later calm down after the administration of the following medications. PRN morphine x3, Haldol x1 and Ativan x2. Staff continue to reposition patient in bed as she keeps to moving around in bed.
[2022-08-31 06:00] VITALS: RESP 16
[2022-08-31 07:00] VITALS: PULSE 82; RESP 16
[2022-08-31] MEDS: fentaNYL 25 MCG/HR PATCH 1 PATCH TRANSDERMA (08:17)
--- NOTE | 2022-08-31 08:22 | PC.NURSE ---
replaced fentanyl patch this am as found it rolled up and on her bed this am.
[2022-08-31] MEDS: PHENobarbitaL 32.4 MG TABLET 64.8 MG PO ×2 (09:21→20:35)
--- NOTE | 2022-08-31 09:58 | PC.SOCIAL ---
Received a phone call from [facility] guardian, Mary Avila. Mary requested information on potential placement for [facility]. [facility] and did assess pt, but stated that they will reassess Saturday because they want to see pt agitation free for 48 hours before they would accept her for admission. Informed Mary that [facility] also discussed payment that it would cost $350 a day for pt to be there. Informed Mary that if pt went to a SNF there would also be a payment due since pt is not going for a skilled need, but instead for long-term care. Mary states that pt does not have any assets and she will complete a medical assistance application today. Guardian will update family. Social Work will follow up as necessary.
--- NOTE | 2022-08-31 11:21 | PM.IMPN1 ---
Progress Note: A&P Assessment and plan (1) Palliative care status: Problem details: Patient is now in the last few days of her life. She is not taking significant food or fluid. Will attempt to optimize her medications for pain, agitation, antiseizure treatment. Would like to do this with transdermal fentanyl, buccal or oral medicine if possible or rectal medicine. May need subcutaneous medicine which would be better than IM injections for controlling pain and agitation. Status: Acute (2) Urinary retention: Problem details: Will bladder scan and straight cath as needed until she is sedated enough to have a Calabrese placed for comfort Status: Acute (3) Need for comfort care: Status: Acute (4) UTI (urinary tract infection): Problem details: Urine Culture Final ML < 50,000 COL/ML MIXED GRAM POSITIVE ASHIA ISOLATED NO FURTHER WORKUP Status: Resolved (5) Methamphetamine abuse: Problem details: Utox 08/24/22 positive for meth H/o meth use Status: Acute (6) Metastatic lung cancer (metastasis from lung to other site): Problem details: Now terminally ill with life expectancy measured in days - diagnosed 01/2022, known mets to brain. Follows with Oncology at [place], she is not currently receiving chemotherapy. Per [facility] notes: 02/02/2022: Staging MRI head demonstrated numerous subcentimeter enhancing lesions suspicious for widespread cerebral metastatic disease. Staging PET-CT demonstrated FDG uptake in the left upper lung pulmonary mass measuring 3 cm (SUV max 21); mediastinal and left hilar adenopathy (SUV 17.1); diffuse FDG uptake throughout the pancreas,; hypermetabolic foci in bilateral adrenal glands (SUV max 5.4 right, 3.6 left); FDG uptake in T4 vertebra; and uptake within the muscle at the left lateral chest wall, indeterminate for infection/inflammation versus metastatic disease. 02/13/2022: Bronchoscopy and EBUS. Procedural report describes normal airway on the right lung. On the left there was some submucosal irregularity of the left upper lobe bronchus with no obstructing masses. EBUS demonstrated that the left hilar mass measured at least 3 cm. 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 02/16/2022 - Chemotherapy Atezolizumab / CARBOplatin / Etoposide Start Date: 02/16/2022 Cycle 2 delayed 1 week due to patient no show. Cycle 2 day 1 administered on 03/21/2022; patient did not come for days 2 & 3 treatment. 04/11/2022 Imaging 04/11/2022: Chest CT shows marked interval decrease in size of LAILA mass and associated left hilar and mediastinal lymphadenopathy consistent with positive treatment response. Additional 4 mm nodule in LAILA may be slightly enlarged. Status: Chronic (7) Self-care deficit for feeding, bathing, and toileting: Problem details: - patient's window caser has already initiated guardianship through the [facility] Status: Acute (8) Tobacco use disorder: Problem details: Continue nicotine patch Status: Chronic (9) Acute alteration in mental status: Problem details: - differential diagnosis includes medication reaction verses withdrawal, nutritional deficiency, acute substance abuse, brain metastases - head CT 08/25/22 shows bleeding metastasis, suspect this is the cause of AMS. No intervention available for this. Status: Acute (10) Bipolar disorder: Problem details: Continue comfort cares medications Status: Chronic (11) Anxiety: Problem details: Continue comfort cares medications Status: Chronic Plan 08/31/22 add prn zyprexa dc IM haldol anticipated DC Saturday hospice Time Spent With Patient Total time spent: 25 inutes Subjective Date Seen: 08/31/22 Interval history: patient has not required IM medications per nursing staff no agitation this morning moaning on questioning unable to follow commands passed gas on provider; appears comfortable Exam Narrative: Exam Narrative: Gen: no acute distress HEENT: NCAT dry mucous membranes CV: RRR s1 s2 Abd: Soft, nt, nd neuro: AOX0 Const: Vital Signs, click to edit/add: Vital Signs - 24 hr 08/30/22 15:11 08/30/22 23:00 08/30/22 23:30 Pulse Rate [Pulse Oximeter] 82 Respiratory Rate 16 16 16 08/31/22 06:00 08/31/22 07:00 Pulse Rate [Pulse Oximeter] 82 Respiratory Rate 16 16
--- NOTE | 2022-08-31 14:14 | PC.NURSE ---
End of Shift Note: Patient was pretty restless in her bed most of the day. When we did cares this am found that her previous fentanyl patch was rolled up and on the bed linens. Replace patch. Did appear she settled down for a bit. Towards lunch time she was kicking her legs out of the bed. Bladder scan she had 300. Notified provider and received a order to place bell cath. Placed a 16 fr and recieved 350 of dark urine upon insertion. Since this and a dose of buccal morphine she is resting comfortably in her bed. Will continue to monitor.
[2022-08-31] MEDS: OLANZapine 5 MG TAB.RAPDIS PO (14:51)
--- NOTE | 2022-08-31 18:11 | PC.NURSE ---
Shift Summary 15-19:Patient resting on and off, has woken up x2, heard moaning and rolling from side to side with had on her back. When asked if having pain says yes. PRN morphine given x2. Patient able to turn and reposition self in bed, staff reposition and place pillows behind back as needed. Calabrese cath with small amount of output.
[2022-08-31] MEDS: NICOTINE 7 MG PATCH 1 PATCH TRANSDERMA (18:53)
[2022-08-31 22:44] VITALS: RESP 16
[2022-09-01] MEDS: MORPHINE 10 MG/0.5 ML ORAL SOLN BUCCAL ×9 (01:45→22:38)
[2022-09-01 05:22] VITALS: RESP 16
--- NOTE | 2022-09-01 05:24 | PC.NURSE ---
[id number] Pt with frequent periods of restlessness and sleep throughout shift. prn morphine administered for comfort. bell patent and draining
[2022-09-01 07:00] VITALS: PULSE 89; RESP 16
[2022-09-01] MEDS: PHENobarbitaL 32.4 MG TABLET 64.8 MG PO ×2 (08:34→21:00)
[2022-09-01 15:00] VITALS: PULSE 89; RESP 16
--- NOTE | 2022-09-01 15:13 | P.IMPN_ITS ---
Progress Note: A&P Assessment and plan (1) Palliative care status: Problem details: Patient is now in the last few days of her life. She is not taking significant food or fluid. Will attempt to optimize her medications for pain, agitation, antiseizure treatment. Would like to do this with transdermal fentanyl, buccal or oral medicine if possible or rectal medicine. May need subcutaneous medicine which would be better than IM injections for controlling pain and agitation. Status: Acute (2) Urinary retention: Problem details: Calabrese catheter in place. Status: Acute (3) Need for comfort care: Status: Acute (4) UTI (urinary tract infection): Problem details: Urine Culture Final ML < 50,000 COL/ML MIXED GRAM POSITIVE ASHIA ISOLATED NO FURTHER WORKUP Status: Resolved (5) Methamphetamine abuse: Problem details: Utox 08/24/22 positive for meth H/o meth use Status: Acute (6) Metastatic lung cancer (metastasis from lung to other site): Problem details: Now terminally ill with life expectancy measured in days - diagnosed 01/2022, known mets to brain. Follows with Oncology at [place], she is not currently receiving chemotherapy. Per [place] [facility] notes: 02/02/2022: Staging MRI head demonstrated numerous subcentimeter enhancing lesions suspicious for widespread cerebral metastatic disease. Staging PET-CT demonstrated FDG uptake in the left upper lung pulmonary mass trupti suring 3 cm (SUV max 21); mediastinal and left hilar adenopathy (SUV 17.1); diffuse FDG uptake throughout the pancreas,; hypermetabolic foci in bilateral adrenal glands (SUV max 5.4 right, 3.6 left); FDG uptake in T4 vertebra; and uptake within the muscle at the left lateral chest wall, indeterminate for infection/inflammation versus metastatic disease. 02/13/2022: Bronchoscopy and EBUS. Procedural report describes normal airway on the right lung. On the left there was some submucosal irregularity of the left upper lobe bronchus with no obstructing masses. EBUS demonstrated that the left hilar mass measured at least 3 cm. 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 02/16/2022 - Chemotherapy Atezolizumab / CARBOplatin / Etoposide Start Date: 02/16/2022 Cycle 2 delayed 1 week due to patient no show. Cycle 2 day 1 administered on 03/21/2022; patient did not come for days 2 & 3 treatment. 04/11/2022 Imaging 04/11/2022: Chest CT shows marked interval decrease in size of LAILA mass and associated left hilar and mediastinal lymphadenopathy consistent with positive treatment response. Additional 4 mm nodule in LAILA may be slightly enlarged. Status: Chronic (7) Self-care deficit for feeding, bathing, and toileting: Problem details: - patient's housing case manager has already initiated guardianship through the [facility] Status: Acute (8) Tobacco use disorder: Problem details: Continue nicotine patch Status: Chronic (9) Acute alteration in mental status: Problem details: - differential diagnosis includes medication reaction verses withdrawal, nutritional deficiency, acute substance abuse, brain metastases - head CT 08/25/22 shows bleeding metastasis, suspect this is the cause of AMS. No intervention available for this. Status: Acute Assessment and Plan: Continue with comfort cares. (10) Bipolar disorder: Problem details: Continue comfort cares medications Status: Chronic Assessment and Plan: Continue the supportive efforts. (11) Anxiety: Problem details: Continue comfort cares medications Status: Chronic Plan Continue with supportive efforts. Await safe discharge disposition effort. Time Spent With Patient Total time spent: 30 minutes Subjective Time Seen by Provider: 08:00 Date Seen: 09/01/22 Interval history: Hospital day number 9. 66-year-old woman with metastatic small cell lung cancer including multiple Mets to the brain some of which are now hemorrhagic. Patient receiving comfort care measures. Goals are being achieved. Awaiting safe discharge disposition plan. This morning her nurse found her laying sideways on her bed with her hands almost touching the floor with her lower body half still on the bed. Nurse reposition the patient with the patient becoming agitated with the support. Short other after I saw the patient and she was laying in her hospital bed on her left side with her right arm hanging over the railing of the bed. I repositioned her arm back in the bed and she did not arouse or become agitated. Exam Narrative: Exam Narrative: Appears comfortable and in no acute distress. Decreased breath sounds but lungs clear otherwise. No CVA tenderness to percussion. Heart tones with regular rhythm, normal S1-S2. Abdomen active bowel sounds, soft, nontender. Extremity with trace edema pretibially bilaterally. Skin is warm, dry, intact. Const: Vital Signs, click to edit/add: Vital Signs - 24 hr 08/31/22 22:44 09/01/22 05:22 09/01/22 07:00 Pulse Rate [Pulse Oximeter] 89 Respiratory Rate 16 16 16 Documenting provider has reviewed patient's vital signs: yes
[2022-09-01] MEDS: NICOTINE 7 MG PATCH 1 PATCH TRANSDERMA (22:18)
[2022-09-01 23:30] VITALS: RESP 18
--- NOTE | 2022-09-01 23:36 | PC.NURSE ---
End of shift [id number]. Pt. had frequent periods of restlessness and sleep throughout shift.?Administered PRN morphine for comfort and pain. bell patent and draining.
[2022-09-02] MEDS: MORPHINE 10 MG/0.5 ML ORAL SOLN BUCCAL ×6 (02:02→13:50)
--- NOTE | 2022-09-02 04:57 | PC.NURSE ---
Shift note: Pt has been sleeping very well tonight with few episodes of moaning which was effectively managed with PRN Morphine. Turning and reposition every 2 hours. Urinary catheter has been draining with bloody urine. Pt continuous with comfort care.
[2022-09-02 05:23] VITALS: RESP 18
[2022-09-02] MEDS: LORazepam 1 MG TABLET PO ×3 (07:40→13:50)
[2022-09-02] MEDS: PHENobarbitaL 32.4 MG TABLET 64.8 MG PO ×2 (09:25→21:42)
[2022-09-02] MEDS: OLANZapine 5 MG TAB.RAPDIS PO (10:00)
[2022-09-02] MEDS: fentaNYL 50 MCG/HR PATCH 1 PATCH TRANSDERMA (13:50)
--- NOTE | 2022-09-02 16:06 | P.IMPN_ITS ---
Progress Note: A&P Assessment and plan (1) Palliative care status: Problem details: Patient is now in the last few days of her life. She is not taking significant food or fluid. Will attempt to optimize her medications for pain, agitation, antiseizure treatment. Would like to do this with transdermal fentanyl, buccal or oral medicine if possible or rectal medicine. Status: Acute Assessment and Plan: 1. I did increase her dose of fentanyl today from 25 micrograms/hour to 50 micrograms/hour in an effort to decrease the amount of p.r.n. morphine and lorazepam that she has been requiring. (2) Urinary retention: Problem details: Calabrese catheter in place. Status: Acute Assessment and Plan: Tolerating this. (3) Need for comfort care: Status: Acute (4) UTI (urinary tract infection): Problem details: Urine Culture Final ML < 50,000 COL/ML MIXED GRAM POSITIVE ASHIA ISOLATED NO FURTHER WORKUP Status: Resolved Assessment and Plan: No obvious indication for treatment. (5) Methamphetamine abuse: Problem details: Utox 08/24/22 positive for meth H/o meth use Status: Acute Assessment and Plan: She may warrant higher doses of analgesia or anxiolytics in order to achieve com fort. (6) Metastatic lung cancer (metastasis from lung to other site): Problem details: Now terminally ill with life expectancy measured in days - diagnosed 01/2022, known mets to brain. Follows with Oncology at [place], she is not currently receiving chemotherapy. Per [facility] notes: 02/02/2022: Staging MRI head demonstrated numerous subcentimeter enhancing lesions suspicious for widespread cerebral metastatic disease. Staging PET-CT demonstrated FDG uptake in the left upper lung pulmonary mass measuring 3 cm (SUV max 21); mediastinal and left hilar adenopathy (SUV 17.1); diffuse FDG uptake throughout the pancreas,; hypermetabolic foci in bilateral adrenal glands (SUV max 5.4 right, 3.6 left); FDG uptake in T4 vertebra; and uptake within the muscle at the left lateral chest wall, indeterminate for infection/inflammation versus metastatic disease. 02/13/2022: Bronchoscopy and EBUS. Procedural report describes normal airway on the right lung. On the left there was some submucosal irregularity of the left upper lobe bronchus with no obstructing masses. EBUS demonstrated that the left hilar mass measured at least 3 cm. 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 02/16/2022 - Chemotherapy Atezolizumab / CARBOplatin / Etoposide Start Date: 02/16/2022 Cycle 2 delayed 1 week due to patient no show. Cycle 2 day 1 administered on 03/21/2022; patient did not come for days 2 & 3 treatment. 04/11/2022 Imaging 04/11/2022: Chest CT shows marked interval decrease in size of LAILA mass and assoc iated left hilar and mediastinal lymphadenopathy consistent with positive treatment response. Additional 4 mm nodule in LAILA may be slightly enlarged. Status: Chronic (7) Self-care deficit for feeding, bathing, and toileting: Problem details: - patient's outsole caser has already initiated guardianship through the [facility] Status: Acute (8) Tobacco use disorder: Problem details: Continue nicotine patch Status: Chronic (9) Acute alteration in mental status: Problem details: - differential diagnosis includes medication reaction verses withdrawal, nutritional deficiency, acute substance abuse, brain metastases - head CT 08/25/22 shows bleeding metastasis, suspect this is the cause of AMS. No intervention available for this. Status: Acute (10) Bipolar disorder: Problem details: Continue comfort cares medications Status: Chronic (11) Anxiety: Problem details: Continue comfort cares medications Status: Chronic Plan Continue with efforts to achieve comfort. Continue with efforts to achieve safe discharge disposition plan for ongoing comfort measures with hospice support. Time Spent With Patient Total time spent: 25 minutes Subjective Time Seen by Provider: 08:00 Date Seen: 09/02/22 Interval history: Hospital day number 10. 66-year-old woman with metastatic small cell lung cancer, including multiple Mets to the brain some of which are now hemorrhagic. Patient receiving comfort care measures. Goals are being achieved. Awaiting safe discharge disposition plan. Patient awoke briefly today and was able to have a conversation. She indicated she is uncomfortable and in pain. She stated she was hungry and thirsty. She ate a putting and did not aspirate or cough. Staff helped reposition her and she was more comfortable. She is still receiving as needed medicines for comfort, including for pain. Exam Narrative: Exam Narrative: When I 1st see her she is sound asleep. She does not arouse as I listen to her lungs and her heart tones and her abdomen. Later in the day when I see her she was awake and talking. She indicates she does not feel comfortable yet she appears not to be in obvious discomfort. Lungs are clear. Decreased breath sounds. Heart tones with regular rhythm. Abdomen with active bowel sounds, soft. Extremities without edema. Skin is warm, dry, and intact. Const: Vital Signs, click to edit/add: Vital Signs - 24 hr 09/01/22 23:30 09/02/22 05:23 Respiratory Rate 18 18 Documenting provider has reviewed patient's vital signs: yes
--- NOTE | 2022-09-02 18:10 | PC.NURSE ---
shift note: pt intermittent agitation & restlessness throughout the day. Pt needing close supervision and prn morphine po, ativan and zyprexia for agitation. Pt had increase in fentanyl patch. leg bag applied to keep tubing from being pulled. tea colored urine (300cc). tongue is swollen and rough. oral cares q1hr. pt did eat a cup of pudding w/o difficulty this afternoon. Pt T&R q 2 hrs for comfort.
[2022-09-02] MEDS: NICOTINE 7 MG PATCH 1 PATCH TRANSDERMA (19:41)
[2022-09-02 23:14] VITALS: RESP 18
[2022-09-03 05:41] VITALS: RESP 18
--- NOTE | 2022-09-03 05:42 | PC.NURSE ---
[id number] Pt slept well during night, cooperative with cares and repositioning, appeared comfortable
[2022-09-03] MEDS: MORPHINE 10 MG/0.5 ML ORAL SOLN BUCCAL ×5 (08:38→18:08)
[2022-09-03] MEDS: LORazepam 1 MG TABLET PO ×2 (10:06→15:18)
[2022-09-03] MEDS: PHENobarbitaL 32.4 MG TABLET 64.8 MG PO ×2 (10:06→20:59)
--- NOTE | 2022-09-03 12:13 | P.IMPN_ITS ---
Progress Note: A&P Assessment and plan (1) Palliative care status: Problem details: Patient is now in the last few days of her life. She is not taking significant food or fluid. Will attempt to optimize her medications for pain, agitation, antiseizure treatment. Would like to do this with transdermal fentanyl, buccal or oral medicine if possible or rectal medicine. Status: Acute Assessment and Plan: Achieving goal for comfort measures. (2) Urinary retention: Problem details: Calabrese catheter in place. Status: Acute (3) Need for comfort care: Status: Acute (4) UTI (urinary tract infection): Problem details: Urine Culture Final ML < 50,000 COL/ML MIXED GRAM POSITIVE ASHIA ISOLATED NO FURTHER WORKUP Status: Resolved (5) Methamphetamine abuse: Problem details: Utox 08/24/22 positive for meth H/o meth use Status: Acute (6) Metastatic lung cancer (metastasis from lung to other site): Problem details: Now terminally ill with life expectancy measured in days - diagnosed 01/2022, known mets to brain. Follows with Oncology at [place], she is not currently receiving chemotherapy. Per [facility] notes: 02/02/2022: Staging MRI head demonstrated numerous subcentimeter enhancing lesions suspicious for widespread cerebral metastatic disease. Staging PET-CT demonstrated FDG uptake in the left upper lung pulmonary mass measuring 3 cm (SUV max 21); mediastinal and left hilar adenopathy (SUV 17.1); diffuse FDG uptake throughout the pancreas,; hypermetabolic foci in bilateral adrenal glands (SUV max 5.4 right, 3.6 left); FDG uptake in T4 vertebra; and uptake within the muscle at the left lateral chest wall, indeterminate for infection/inflammation versus metastatic disease. 02/13/2022: Bronchoscopy and EBUS. Procedural report describes normal airway on the right lung. On the left there was some submucosal irregularity of the left upper lobe bronchus with no obstructing masses. EBUS demonstrated that the left hilar mass measured at least 3 cm. 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 02/16/2022 - Chemotherapy Atezolizumab / CARBOplatin / Etoposide Start Date: 02/16/2022 Cycle 2 delayed 1 week due to patient no show. Cycle 2 day 1 administered on 03/21/2022; patient did not come for days 2 & 3 treatment. 04/11/2022 Imaging 04/11/2022: Chest CT shows marked interval decrease in size of LAILA mass and associated left hilar and mediastinal lymphadenopathy consistent with positive treatment response. Additional 4 mm nodule in LAILA may be slightly enlarged. Status: Chronic (7) Self-care deficit for feeding, bathing, and toileting: Problem details: - patient's high risk case manager has already initiated guardianship through the [facility] Status: Acute (8) Tobacco use disorder: Problem details: Continue nicotine patch Status: Chronic (9) Acute alteration in mental status: Problem details: - differential diagnosis includes medication reaction verses withdrawal, nutritional deficiency, acute substance abuse, brain metastases - head CT 08/25/22 shows bleeding metastasis, suspect this is the cause of AMS. No intervention available for this. Status: Acute (10) Bipolar disorder: Problem details: Continue comfort cares medications Status: Chronic (11) Anxiety: Problem details: Continue comfort cares medications Status: Chronic Plan Await safe discharge disposition plan. creative services coordinator assisting with this. Time Spent With Patient Total time spent: 20 minutes Subjective Time Seen by Provider: 08:00 Date Seen: 09/03/22 Interval history: Hospital day number 11. 66-year-old woman with metastatic small cell lung cancer, including multiple Mets to the brain some of which are now hemorrhagic. Patient receiving comfort care measures per legal guardian. Goals are being achieved. Awaiting safe discharge disposition plan. Patient sleeping most of the day and night. Awake briefly intermittently. At times able to express that she is in discomfort. Other times she expresses a sense of thirst or hunger. Has a Calabrese catheter in place. Needs total assistance. Needs reorientation when she is awake. Exam Narrative: Exam Narrative: Asleep, appears comfortable. Arousable, remains awake briefly. Falls back asleep. Moving all 4 extremities spontaneously. No obvious focal motor neurologic deficits. Lungs clear to auscultation. Heart tones with regular rhythm. Abdomen with active bowel sounds, soft. Nontender. Extremities without edema. Skin is warm, dry, intact. Const: Vital Signs, click to edit/add: Vital Signs - 24 hr 09/02/22 23:14 09/03/22 05:41 Respiratory Rate 18 18
--- NOTE | 2022-09-03 16:59 | PC.SOCIAL ---
Faxed updated progress and nursing notes to [facility]. Spoke on the phone to Mari from [facility]. Mari states that she is concerned because pt is noted to be agitated and she is wondering if pain management can be adjusted to make pt more comfortable. Mari will follow up tomorrow to see if pt is more stable and reassess. Spoke to nursing and they stated that medication has been adjusted for pain management. Faxed referral to [facility] in [place]. Received a phone call from Katarina in admissions stating that the facility is unable to meet pt's needs so they are declining admission. Faxed referral to [facility] in [facility]. Phone call from Elena Moreno at [facility]. Elena requested an update on pt. Provided update on status and discharge planning. Elena will check into the [place] for pt. Received a phone call from Mary Avila, pt's guardian. Mary stated that she found out that pt has [facility] and [facility] waiver. Provided update on pt's status and discharge planning. If [facility] does not accept then Mary would like this worker to check into [facility] in [place]. Social Work will continue to follow up as necessary.
--- NOTE | 2022-09-03 18:34 | PC.NURSE ---
Pt intermittently restless but appears relaxed and comfortable after PRN pain and anxiety meds. Garbled speech at times. Oral cares given, no other PO intake. Pt repositioning self in bed. Calabrese in place draining dark christ cloudy urine.
[2022-09-03] MEDS: NICOTINE 7 MG PATCH 1 PATCH TRANSDERMA (19:08)
[2022-09-03 19:16] VITALS: BP 145/81; RESP 18; TEMP 36; O2SAT 96
[2022-09-03] MEDS: LORazepam 2 MG/ML inj IM (19:21)
[2022-09-03 23:36] VITALS: PULSE 89; RESP 18
[2022-09-03 23:38] VITALS: RESP 18
[2022-09-04] MEDS: MORPHINE 10 MG/0.5 ML ORAL SOLN BUCCAL ×7 (03:01→20:54)
--- NOTE | 2022-09-04 03:20 | PC.NURSE ---
Pt rested on her belly all night. Appeared comfortable. Would roll back over when RN tried to turn and repo. Calabrese Patent and Draining brown urine. Pt speech garbled. Restful night vitals.
[2022-09-04 05:40] VITALS: RESP 18
[2022-09-04] MEDS: PHENobarbitaL 32.4 MG TABLET 64.8 MG PO ×2 (08:42→20:54)
[2022-09-04] MEDS: LORazepam 1 MG TABLET PO ×3 (09:01→22:56)
--- NOTE | 2022-09-04 14:51 | PC.SOCIAL ---
Discharge planning- Faxed updated nursing progress notes to [facility] at [phone]. Made a phone call to Mari Huston at [facility] at [phone] to follow up on potential admission. Mari states that the notes look like pt is more comfortable and they would like to see 48 hours of pt stability before a decision is made. If pt remains the same tonight then we can look at admission for morning. [facility] is unable to do an admission tomorrow due to staffing. Mari requests information from that pt's life expectancy is less than 30 days. Mari states that [facility] does not accept any form of insurance or [place], but states pt can admit using [facility] funding but it is limited to only 30 days. This worker will confirm with and provide information to Mari. Discussed information with charge nurse and was informed that MD does believe pt's life expectancy is less than 30 days. Provided information to Mari at [facility]. [facility] will reassess tomorrow morning. Social Work will follow up as necessary.
--- NOTE | 2022-09-04 15:21 | P.IMPN_ITS ---
Progress Note: A&P Assessment and plan (1) Palliative care status: Problem details: Patient is now in the last few days of her life. She is not taking significant food or fluid. Will attempt to optimize her medications for pain, agitation, antiseizure treatment. Would like to do this with transdermal fentanyl, buccal or oral medicine if possible or rectal medicine. Status: Acute Assessment and Plan: Doing well on current medication regimen. Quite stable. (2) Urinary retention: Problem details: Calabrese catheter in place. Status: Acute (3) Need for comfort care: Status: Acute (4) UTI (urinary tract infection): Problem details: Urine Culture Final ML < 50,000 COL/ML MIXED GRAM POSITIVE ASHIA ISOLATED NO FURTHER WORKUP Status: Resolved (5) Methamphetamine abuse: Problem details: Utox 08/24/22 positive for meth H/o meth use Status: Acute (6) Metastatic lung cancer (metastasis from lung to other site): Problem details: Now terminally ill with life expectancy measured in days - diagnosed 01/2022, known mets to brain. Follows with Oncology at [place], she is not currently receiving chemotherapy. Per [facility] notes: 02/02/2022: Staging MRI head demonstrated numerous subcentimeter enhancing lesions suspicious for widespread cerebral metastatic disease. Staging PET-CT demonstrated FDG uptake in the left upper lung pulmonary mass measuring 3 cm (SUV max 21); mediastinal and left hilar adenopathy (SUV 17.1); diffuse FDG uptake throughout the pancreas,; hypermetabolic foci in bilateral adrenal glands (SUV max 5.4 right, 3.6 left); FDG uptake in T4 vertebra; and uptake within the muscle at the left lateral chest wall, indeterminate for infection/inflammation versus metastatic disease. 02/13/2022: Bronchoscopy and EBUS. Procedural report describes normal airway on the right lung. On the left there was some submucosal irregularity of the left upper lobe bronchus with no obstructing masses. EBUS demonstrated that the left hilar mass measured at least 3 cm. 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 02/16/2022 - Chemotherapy Atezolizumab / CARBOplatin / Etoposide Start Date: 02/16/2022 Cycle 2 delayed 1 week due to patient no show. Cycle 2 day 1 administered on 03/21/2022; patient did not come for days 2 & 3 treatment. 04/11/2022 Imaging 04/11/2022: Chest CT shows marked interval decrease in size of LAILA mass and associated left hilar and mediastinal lymphadenopathy consistent with positive treatment response. Additional 4 mm nodule in LAILA may be slightly enlarged. Status: Chronic (7) Self-care deficit for feeding, bathing, and toileting: Problem details: - patient's director of casework has already [facility] Status: Acute (8) Tobacco use disorder: Problem details: Continue nicotine patch Status: Chronic (9) Acute alteration in mental status: Problem details: - differential diagnosis includes medication reaction verses withdrawal, nutritional deficiency, acute substance abuse, brain metastases - head CT 08/25/22 shows bleeding metastasis, suspect this is the cause of AMS. No intervention available for this. Status: Acute (10) Bipolar disorder: Problem details: Continue comfort cares medications Status: Chronic (11) Anxiety: Problem details: Continue comfort cares medications Status: Chronic Plan 1. Continue to await safe discharge disposition plan. 2. Continue the supportive efforts. Time Spent With Patient Total time spent: 20 minutes Subjective Time Seen by Provider: 07:30 Date Seen: 09/04/22 Interval history: Hospital day number 12. 66-year-old woman with metastatic small cell lung cancer, including multiple Mets to the brain some of which are now hemorrhagic. Patient receiving comfort care measures per legal guardian. Goals are being achieved. Awaiting safe discharge disposition plan. Patient sleeping most of the day and night. Intermittently restless. Easily comforted. Never agitated. Awakens briefly intermittently. At times able to express that she is in discomfort. Other times she expresses a sense of thirst or hunger. Has a Calabrese catheter in place. Needs total assistance. Needs reorientation when she is awake. Exam Narrative: Exam Narrative: Sound asleep. Sleeping in the prone position. Spontaneously rolls to her side. Spontaneously moves in bed. Lungs clear to auscultation. Heart tones with regular rhythm. No CVA tenderness. Active bowel sounds, soft, nontender. Skin is warm, dry, intact. Incontinence briefs on. Const: Vital Signs, click to edit/add: Vital Signs - 24 hr 09/03/22 19:16 09/03/22 23:36 09/03/22 23:38 Temperature 96.8 F L Pulse Rate [Pulse Oximeter] 89 Respiratory Rate 18 18 18 Blood Pressure 145/81 H Pulse Oximetry 96 Oxygen Delivery Me thod Room Air 09/04/22 05:40 Temperature Pulse Rate [Pulse Oximeter] Respiratory Rate 18 Blood Pressure Pulse Oximetry Oxygen Delivery Me thod Documenting provider has reviewed patient's vital signs: yes
--- NOTE | 2022-09-04 17:59 | PC.NURSE ---
Pt on comfort cares. PRN morphine and Ativan for restlessness. T&R Q2H. After repositioning pt repositions self back onto belly. Using proning pillow and alternating with regular pillows for comfort. Calabrese draining brown urine.
[2022-09-04] MEDS: NICOTINE 7 MG PATCH 1 PATCH TRANSDERMA (18:36)
--- NOTE | 2022-09-04 22:38 | PC.NURSE ---
End of Shift: Frequent turn and reposition and oral cares. Patient does move around in bed some on own. Opens eyes but not answering any questions. [place]an[place] patent. PRN Morphine x1.
[2022-09-04 23:30] VITALS: RESP 18
[2022-09-05] MEDS: MORPHINE 10 MG/0.5 ML ORAL SOLN BUCCAL ×5 (00:37→22:00)
[2022-09-05] MEDS: LORazepam 1 MG TABLET PO ×3 (01:00→18:04)
[2022-09-05 06:00] VITALS: RESP 18
--- NOTE | 2022-09-05 06:09 | PC.NURSE ---
Patient is on comfort care; was turned and repositioned as scheduled, and oral cares done. Calabrese patent. PRN Morphine x1 and Ativan x1.
[2022-09-05] MEDS: PHENobarbitaL 32.4 MG TABLET 64.8 MG PO ×2 (09:08→22:00)
--- NOTE | 2022-09-05 12:28 | PC.NURSE ---
End of Shift Note: Patient for the most part has rested in bed. When first arrived she was moving a little and appeared to have some discomfort. Meds given and has continued to rest throughout shift.
--- NOTE | 2022-09-05 12:35 | PC.SOCIAL ---
Discharge planning- Faxed progress and nursing notes to [facility] at [phone]. Phone call to Mari Huston at [facility] at [phone]. Discussed pt's status. Mari states that the [facility] can accept pt for admission and she will have to speak with nursing to see if they can do an admission for tomorrow. Mari will call this worker back. Mari informed that pt will have to have a Covid test at least 72 hours prior to admission to the [facility]. Provided an update to pt's guardian, Mary Avila. Social work will continue to follow up as necessary.
[2022-09-05] MEDS: fentaNYL 50 MCG/HR PATCH 1 PATCH TRANSDERMA (12:53)
--- NOTE | 2022-09-05 15:50 | PM.IMPN1 ---
Progress Note: A&P Assessment and plan (1) Palliative care status: Problem details: Patient is now in the last few days of her life. She is not taking significant food or fluid. Will attempt to optimize her medications for pain, agitation, antiseizure treatment. Would like to do this with transdermal fentanyl, buccal or oral medicine if possible or rectal medicine. Status: Acute (2) Urinary retention: Problem details: Calabrese catheter in place. Status: Acute (3) Need for comfort care: Status: Acute (4) UTI (urinary tract infection): Problem details: Urine Culture Final ML < 50,000 COL/ML MIXED GRAM POSITIVE ASHIA ISOLATED NO FURTHER WORKUP Status: Resolved (5) Methamphetamine abuse: Problem details: Utox 08/24/22 positive for meth H/o meth use Status: Acute (6) Metastatic lung cancer (metastasis from lung to other site): Problem details: Now terminally ill with life expectancy measured in days - diagnosed 01/2022, known mets to brain. Follows with Oncology at [facility], she is not currently receiving chemotherapy. Per [facility] notes: 02/02/2022: Staging MRI head demonstrated numerous subcentimeter enhancing lesions suspicious for widespread cerebral metastatic disease. Staging PET-CT demonstrated FDG uptake in the left upper lung pulmonary mass measuring 3 cm (SUV max 21); mediastinal and left hilar adenopathy (SUV 17.1); diffuse FDG uptake throughout the pancreas,; hypermetabolic foci in bilateral adrenal glands (SUV max 5.4 right, 3.6 left); FDG uptake in T4 vertebra; and uptake within the muscle at the left lateral chest wall, indeterminate for infection/inflammation versus metastatic disease. 02/13/2022: Bronchoscopy and EBUS. Procedural report describes normal airway on the right lung. On the left there was some submucosal irregularity of the left upper lobe bronchus with no obstructing masses. EBUS demonstrated that the left hilar mass measured at least 3 cm. 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 02/16/2022 - Chemotherapy Atezolizumab / CARBOplatin / Etoposide Start Date: 02/16/2022 Cycle 2 delayed 1 week due to patient no show. Cycle 2 day 1 administered on 03/21/2022; patient did not come for days 2 & 3 treatment. 04/11/2022 Imaging 04/11/2022: Chest CT shows marked interval decrease in size of LAILA mass and associated left hilar and mediastinal lymphadenopathy consistent with positive treatment response. Additional 4 mm nodule in LAILA may be slightly enlarged. Status: Chronic (7) Self-care deficit for feeding, bathing, and toileting: Problem details: - patient's case loader operator has already initiated guardianship through the [facility] Status: Acute (8) Tobacco use disorder: Problem details: Continue nicotine patch Status: Chronic (9) Acute alteration in mental status: Problem details: - differential diagnosis includes medication reaction verses withdrawal, nutritional deficiency, acute substance abuse, brain metastases - head CT 08/25/22 shows bleeding metastasis, suspect this is the cause of AMS. No intervention available for this. Status: Acute (10) Bipolar disorder: Problem details: Continue comfort cares medications Status: Chronic (11) Anxiety: Problem details: Continue comfort cares medications Status: Chronic Plan 1. Continue with supportive efforts. 2. Await safe discharge disposition plan. 3. Continue with terminal comfort care measures only. Time Spent With Patient Total time spent: 20 Subjective Time Seen by Provider: 07:30 Date Seen: 09/05/22 Interval history: Hospital day number 13. 66-year-old woman with metastatic small cell lung cancer, including multiple Mets to the brain some of which are now hemorrhagic. Patient receiving comfort care measures per legal guardian. Goals are being achieved. Awaiting safe discharge disposition plan. Patient sleeping most of the day and night. Intermittently restless. Easily comforted. Never agitated. Awakens briefly intermittently. At times able to express that she is in discomfort. Other times she expresses a sense of thirst or hunger. Has a Calabrese catheter in place. Needs total assistance. Needs reorientation when she is awake. Exam Narrative: Exam Narrative: Asleep. Arousable to light touch of her hand and call of her name. She opens her eyes momentarily. She falls asleep readily again. Lungs are clear to auscultation. Heart tones with regular rhythm. Abdomen benign. Extremities without edema. Const: Vital Signs, click to edit/add: Vital Signs - 24 hr 09/04/22 23:30 09/05/22 06:00 Respiratory Rate 18 18 Documenting provider has reviewed patient's vital signs: yes
[2022-09-05] MEDS: NICOTINE 7 MG PATCH 1 PATCH TRANSDERMA (20:10)
--- NOTE | 2022-09-05 22:30 | PC.NURSE ---
End of Shift: Frequent turn and reposition and oral cares. Does respond yea when her name is called, but no further responses. PRN Morphine and Ativan for comfort. Guanakito patent.
[2022-09-05 23:30] VITALS: RESP 18
[2022-09-06] MEDS: MORPHINE 10 MG/0.5 ML ORAL SOLN BUCCAL ×8 (03:22→21:12)
[2022-09-06 05:11] VITALS: RESP 18
--- NOTE | 2022-09-06 05:14 | PC.NURSE ---
Pt is resting comfortably well. Restlessness was observed at 0300 and was effectively managed with PRN Morphine. No SOB noted. Turned and reposition Q2H. Urinary catheter is patent and urine bag with brown urine.
[2022-09-06] MEDS: PHENobarbitaL 32.4 MG TABLET 64.8 MG PO ×2 (09:55→21:12)
[2022-09-06 11:46] LABS: SARS PCR* Negative SARS-CoV-2 (Negative)
[2022-09-06] MEDS: LORazepam 1 MG TABLET PO (12:05)
--- NOTE | 2022-09-06 12:38 | PC.SOCIAL ---
Discharge planning- Received a voicemail from Marirobert Huston at the [facility] at [phone]. This worker called Mari Huston back. Mari stated that she needed more information to get pt admitted to the [facility] today. Provided Mari with Pt's guardian's contact information. Mari is requesting medication for a few days to be sent for pt due to not being able to get the medication from their pharmacy right away and needing to keep pt comfortable. This worker will request this from the charge nurse. Mari is requesting a Covid test within 72 hours of admission. Mari states she is still concerned that pt may become behavioral once admitting to the [facility] and states they do not have staff to do one on one care for behaviors. Mari questions whether the guardian can come and sit with pt if she were to become behavioral. Mari will discuss further with guardian. Reassured Mari that pt has not exhibited behaviors this week and is comfortable and sleeping most of the day. Provided Mari with the phone number to nursing to get a medical update and get reassurance on pt's current status. Phone call to pt's guardian, Mary Avila, at [phone]. Provided Mary with an update. Mary will reach out to Mari at the [facility]. Received information from the guardian that [facility] was informed by a nurse at the [facility] that pt was actively passing away and would not be transferring out of the hospital. Clarified with charge nurse and charge nurse stated it was miscommunication and we will continue to work with the [facility] for discharge. Made a phone call to Mari Huston at the [facility] and clarified that pt would still need placement and it is preferred that placement occur today. Received a phone call back from Mari at the [facility] stating that they are declining pt admission to the [facility] for today because there are concerns with the information that was provided by Nursing staff at the [facility] regarding the pt's current status and the pending bad weather for today. Mari states she will call this worker tomorrow to reassess for possible admission. Provided update to charge nurse and pt's guardian, Mary Avila. Social Work will continue to follow up as necessary.
--- NOTE | 2022-09-06 13:23 | PC.NURSE ---
End of Shift Note: Patient has been turned and repositioned. She is still moving a little on her own in bed. Did get medication to keep her comfortable.
--- NOTE | 2022-09-06 16:29 | P.IMPN_ITS ---
Progress Note: A&P Assessment and plan (1) Palliative care status: Problem details: Patient is now in the last few days of her life. She is not taking significant food or fluid. Will attempt to optimize her medications for pain, agitation, antiseizure treatment. Would like to do this with transdermal fentanyl, buccal or oral medicine if possible or rectal medicine. Transitioning to actively now. Status: Acute (2) Urinary retention: Problem details: Calabrese catheter in place. Status: Acute (3) Need for comfort care: Status: Acute (4) UTI (urinary tract infection): Problem details: Urine Culture Final ML < 50,000 COL/ML MIXED GRAM POSITIVE ASHIA ISOLATED NO FURTHER WORKUP Status: Resolved (5) Methamphetamine abuse: Problem details: Utox 08/24/22 positive for meth H/o meth use Status: Acute (6) Metastatic lung cancer (metastasis from lung to other site): Problem details: Now terminally ill with life expectancy measured in days - diagnosed 01/2022, known mets to brain. Follows with [facility]cology at [facility], she is not currently receiving chemotherapy. Per [facility] notes: 02/02/2022: Staging MRI head demonstrated numerous subcentimeter enhancing lesions suspicious for widespread cerebral metastatic disease. Staging PET-CT demonstrated FDG uptake in the left upper lung pulmonary mass measuring 3 cm (SUV max 21); mediastinal and left hilar adenopathy (SUV 17.1); diffuse FDG uptake throughout the pancreas,; hypermetabolic foci in bilateral adrenal glands (SUV max 5.4 right, 3.6 left); FDG uptake in T4 vertebra; and uptake within the muscle at the left lateral chest wall, indeterminate for infection/inflammation versus metastatic disease. 02/13/2022: Bronchoscopy and EBUS. Procedural report describes normal airway on the right lung. On the left there was some submucosal irregularity of the left upper lobe bronchus with no obstructing masses. EBUS demonstrated that the left hilar mass measured at least 3 cm. 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 02/16/2022 - Chemotherapy Atezolizumab / CARBOplatin / Etoposide Start Date: 02/16/2022 Cycle 2 delayed 1 week due to patient no show. Cycle 2 day 1 administered on 03/21; patient did not come for days 2 & 3 treatment. 04/11/2022 Imaging 04/11/2022: Chest CT shows marked interval decrease in size of LAILA mass and associated left hilar and mediastinal lymphadenopathy consistent with positive treatment response. Additional 4 mm nodule in LAILA may be slightly enlarged. Status: Chronic (7) Self-care deficit for feeding, bathing, and toileting: Problem details: - patient's lining caser has already initiated guardianship through the [facility] Status: Acute (8) Tobacco use disorder: Problem details: Continue nicotine patch Status: Chronic (9) Acute alteration in mental status: Problem details: - differential diagnosis includes medication reaction verses withdrawal, nutritional deficiency, acute substance abuse, brain metastases - head CT 08/25/22 shows bleeding metastasis, suspect this is the cause of AMS. No intervention available for this. Status: Acute (10) Bipolar disorder: Problem details: Continue comfort cares medications Status: Chronic (11) Anxiety: Problem details: Continue comfort cares medications Status: Chronic Plan 1. We had tentative arrangements to transfer the patient to the hospice house in [place], [place]. As patient's condition transitions to actively dying they are indicating that they prefer not to receive her at this time. 2. Continue with our efforts to support the patient at this time. 3. We are communicating with her guardian. Time Spent With Patient Total time spent: 40 minutes total throughout the day Subjective Time Seen by Provider: 09:00 Date Seen: 09/06/22 Interval history: Hospital day number 14. 66-year-old woman with metastatic small cell lung cancer, including multiple Mets to the brain some of which are now hemorrhagic. Patient receiving comfort care measures per legal guardian. Goals are being achieved. Awaiting safe discharge disposition plan. Patient sleeping most of the day and night. Intermittently restless. Easily comforted. Never agitated. No longer awakening briefly. Has a Calabrese catheter in place. Needs total assistance. Exam Narrative: Exam Narrative: Entirely asleep now. Does not arouse to call of her name or touch of her hand. Appears comfortable. Franco-Lopez breathing. When I initially evaluated her this morning she had 20 seconds of breathing roughly 6-8 breaths followed by 20 seconds of apnea. Later this afternoon as I was reassessing her she again had roughly 20 seconds of breathing roughly 6-8 breaths followed by 30-35 seconds of apnea. Still spontaneously moves her extremities periodically. Lungs are clear. Heart tones regular. Abdomen with active bowel sounds, soft. Decreased urine output, dark colored urine. Const: Vital Signs, click to edit/add: Vital Signs - 24 hr 09/05/22 23:30 09/06/22 05:11 Respiratory Rate 18 18 Documenting provider has reviewed patient's vital signs: yes Labs Labs: Laboratory Results - last 24 hr 09/06/22 09:52 SARS-CoV-2 (PCR) Negative SARS-CoV-2
[2022-09-06] MEDS: NICOTINE 7 MG PATCH 1 PATCH TRANSDERMA (21:11)
[2022-09-06 23:30] VITALS: RESP 20
[2022-09-07 06:00] VITALS: RESP 18
--- NOTE | 2022-09-07 07:27 | PC.NURSE ---
END OF SHIFT NOTE: PT UNRESPONSIVE THROUGHOUT ENTIRE SHIFT. PT ACTIVELY DYING. REPOSITIONED Q2HR. MOUTH SWABBED AND MOISTURIZER APPLIED TO LIPS. NO OUTPUT THIS SHIFT.
[2022-09-07] MEDS: PHENobarbitaL 32.4 MG TABLET 64.8 MG PO (08:46)
[2022-09-07] MEDS: MORPHINE 10 MG/0.5 ML ORAL SOLN BUCCAL ×2 (09:58→11:00)
--- NOTE | 2022-09-07 12:02 | PC.SOCIAL ---
Received a phone call from Mari Huston at the [facility] at [phone]. Mari was requesting an update for pt to come to [facility] today. Informed Mari that pt has had a significant decline overnight and medical staff is requesting that pt stay in the hospital at this time, so placement is no longer needed. Phone call to pt's guardian, Mary Avila, to provide an update on pt. Mary requested progress notes. Emailed progress notes to Mary at [email or web address]. Social Work will follow up as necessary.
--- NOTE | 2022-09-07 14:32 | PC.NURSE ---
Shift Summary: Patient resting throughout shift, not responsive to name. Toes and fingertips felt cold at start of shift. Patients RR 25-40bpm, PRN morphine for comfort with little effect. T&R q2h, oral cares performed. Patient @ 1150, not breathing, HR not heard with stethoscope, updated. Guardian updated, son updated per guardian. Calls made to creative services writer and tissue donation, was told patient is not eligible for donation. Per guardian patient to be sent to [facility] in [place]. Patient collected by [facility] @ [phone].
--- NOTE | 2022-09-07 15:20 | P.DN_ITS ---
Pronouncement Note Date and Time of Date of : 09/07/22 Time of : 11:50 PCOD Preliminary cause of : Small cell carcinoma of lung Contributing Factors (1) Palliative care status: (2) Urinary retention: (3) Need for comfort care: (4) UTI (urinary tract infection): (5) Methamphetamine abuse: (6) Metastatic lung cancer (metastasis from lung to other site): (7) Self-care deficit for feeding, bathing, and toileting: (8) Tobacco use disorder: (9) Acute alteration in mental status: (10) Bipolar disorder: (11) Anxiety: Summary Additional details: 66-year-old woman presented with altered mental status and determined to have extensive stage metastatic small cell lung cancer, including multiple Mets to the brain some of which are now hemorrhagic.? Patient received comfort care measures throughout her hospital stay, per legal guardian. Attempted to discharge patient to a hospice center or jail but were unable to do so due to unavailability of such beds across our community and state. Patient peacefully with help and support of hospital staff. We kept the patient's guardian informed throughout. Additional Data Confirmation of : no pulse, no respirations, no heart sounds, pupils fixed and dilated and other (Motionless.) Family: contacted Additional persons at bedside: other (Nurse.) Attending/PCP notified?: Yes Attending physician: Ousmane Villarreal MD Time Seen by Provider: 11:55 Date Seen: 09/07/22 Was code activated?: No Autopsy requested?: No methods examiner notified?: No Organ bank notified?: Yes Advance directives: No
--- NOTE | 2022-09-07 19:22 | PC.NURSE ---
Patients brother, Jamari, and son, Josef, updated on patients belongings. Son decided that clothing could be thrown out however requesting that staff send jewelry to [facility]. Address [address], [place] [address]. Updated [facility] [employer] with address and patients belongings to send in mail.
== END 2022-09-07 14:09 | disposition expired | DRG 55 ==
LOC: ED 16:25 → MEDSURG 08-25 07:37
PROVIDERS: Family Medicine; Internal Medicine; Admitting Provider Family Medicine; Emergency Provider Emergency Medicine Emergency Medical Services; Visit Provider Family Medicine
DX: C79.31 Secondary malignant neoplasm of brain (principal); N39.0 Urinary tract infection, site not specified; F15.20 Other stimulant dependence, uncomplicated; C34.12 Malignant neoplasm of upper lobe, left bronchus or lung; C77.1 Secondary and unspecified malignant neoplasm of intrathoracic lymph nodes; R41.82 Altered mental status, unspecified; F41.9 Anxiety disorder, unspecified; F31.9 Bipolar disorder, unspecified; F17.210 Nicotine dependence, cigarettes, uncomplicated; Z85.3 Personal history of malignant neoplasm of breast; Z90.10 Acquired absence of unspecified breast and nipple; R33.9 Retention of urine, unspecified; Z51.5 Encounter for palliative care
CPT/HCPCS: 36415; 51702; 51798; 70450; 80053; 80306; 81003; 81015; 85025; 87086; 87635; 97116; 97162; 97165; 97535; 99285; A0425; A0427; A9270; G0378; J1630; J2060; J2250; S0166; S4990